=== PATIENT | female | born 1930 | race Caucasian/White ===

== ENCOUNTER 2018-03-08 09:27 | Inpatient (IN) ==
[2018-03-08] MEDS ORDERED: LACTATED RINGERS 1,000 ML IV ONE (09:34)
--- NOTE | 2018-03-08 09:42 | Emergency Department Note ---
General Adult HPI - General Chief complaint: Weakness Stated complaint: weakness, SOB, tachy Time Seen by Provider: 03/08/18 09:36 Source: patient, EMS Mode of arrival: EMS Limitations: no limitations - History of Present Illness HPI Narrative: This patient became ill yesterday with some nausea and vomiting and confused. Her O2 saturation is a bit low her heart rates over 100 and she does seem a bit confused - Related Data Home Medications Medication Instructions Recorded Confirmed Aspirin [Adult Low Dose Aspirin EC] 81 mg PO DAILY 09/11/15 12/12/15 Atenolol [Tenormin] 50 mg PO BID 09/11/15 12/12/15 Budesonide/Formoterol Fumarate 10.2 gm IH BID 09/11/15 12/12/15 [Symbicort 80-4.5 Mcg Inhaler] Diltiazem HCl [Matzim LA] 240 mg PO DAILY 09/11/15 12/12/15 Donepezil HCl [Donepezil HCl Odt] 5 mg PO DAILY 09/11/15 12/12/15 Isosorbide Mononitrate [Isosorbide 30 mg PO DAILY 09/11/15 12/12/15 Mononitrate ER] Meclizine [Antivert] 25 mg PO TIDP PRN 09/11/15 12/12/15 Omeprazole [Prilosec] 20 mg PO ACB PRN 09/11/15 12/12/15 Simvastatin [Zocor] 10 mg PO HS 09/11/15 12/12/15 Vitamin D3 1,000 unit PO DAILY 09/11/15 12/12/15 Previous Rx's Medication Instructions Recorded Lisinopril [Zestril] 10 mg PO DAILY #30 tablet 10/10/15 predniSONE [Prednisone] 10 mg PO DAILY #18 tablet 05/09/16 Diltiazem HCl [Diltiazem 24Hr Cd] 360 mg PO QDAY #30 cap.er.24h 12/29/17 Nitrofurantoin Macrocrystal 100 mg PO BID 7 Days #14 cap 01/28/18 [Nitrofurantoin] Allergies Allergy/AdvReac Type Severity Reaction Status Date / Time No Known Drug Allergies Allergy Verified 03/08/18 09:32 Review of Systems All systems ED: reviewed and negative except as stated. Past Medical History - Past Medical History PMF Narrative: Medical History Weakness (Acute) COPD with hypoxia (Acute) Hypertensive crisis (Acute) Diarrhea (Acute) Gastroenteritis (Acute) Viral syndrome (Acute) COPD (chronic obstructive pulmonary disease) (Acute) Medical history: Reports: asthma, coronary artery disease, dementia, GERD, hyperlipidemia, hypertension Surgical history ED: Reports: cholecystectomy, hysterectomy - Social History smoking status: Former smoker Alcohol use: Reports: None Drug use: Reports: unknown Physical Exam Limitations: no limitations General appearance: alert, in no apparent distress Head: atraumatic, normocephalic Eye: Present: normal appearance ENT: normal exam Neck: Present: normal inspection Chest: Present: normal inspection Respiratory: Present: rales/crackles Cardiovascular: Present: regular rate, tachycardia, normal heart sounds Abdominal: Present: soft. Absent: distention, tenderness Extremities: Absent: pedal edema, pretibial edema Neurological: Present: alert Psychiatric: Present: normal affect, normal mood Skin: Present: warm, dry, intact Course Vital Signs Temperature 98.1 F 03/08/18 09:29 Pulse Rate 122 H 03/08/18 09:29 Respiratory Rate 26 H 03/08/18 09:29 Pulse Oximetry (%) 89 L 03/08/18 09:29 Temperature 98.5 F 03/08/18 10:40 Pulse Rate 108 H 03/08/18 11:37 Respiratory Rate 21 03/08/18 11:37 Blood Pressure 163/67 03/08/18 11:31 Pulse Oximetry (%) 100 03/08/18 11:37 Medical Decision Making - [facility] Narrative Medical decision making narrative: Chest x-ray was unremarkable but urine greater than 182 white cells and positive nitrite. Blood cultures obtained we gave Levaquin 500 mg IV and the patient will be admitted to the hospital by Dr. Luciano. - Lab Data Lab results reviewed: Yes I reviewed the patient's lab results. Result diagrams: 03/08/18 09:33 03/08/18 09:33 Lab Results 03/08/18 03/08/18 03/08/18 Range/Units 09:33 09:33 09:33 WBC 10.1 (4.5-11.0) K/mcL RBC 3.76 L (4.00-5.20) M/mcL Hgb 11.6 L (12.0-15.0) g/dL Hct 34.8 L (36.0-48.0) % MCV 92.5 (80.0-100.0) fL MCH 30.9 (26.0-34.0) pg MCHC 33.4 (31.0-36.0) g/dL RDW 14.9 H (11.5-14.5) % Plt Count 284 (140-440) K/mcL MPV 8.7 (7.4-10.4) fL Total Counted 100 Seg Neutrophils % 87 H (38-78) % Band Neutrophils % Not Reportable Lymphocytes % 8 L (15-49) % Monocytes % (Manual) 4 (1-12) % Myelocytes % 1 H (0-0) % Platelet Estimate Normal (NORMAL) RBC Morphology Abnorm A (NORMAL) Anisocytosis Few A (NONE SEEN) VBG Lactic Acid 1.1 (0.5-2.0) mmol/L Sodium 138 (133-145) mmol/L Potassium 4.0 (3.3-5.1) mmol/L Chloride 99 (96-108) mmol/L Carbon Dioxide 26 (22-30) mmol/L Anion Gap 13.0 (8-16) BUN 18 (8-23) mg/dl Creatinine 0.9 (0.6-1.1) mg/dl GFR Calculation 57 Glucose 107 H (70-105) mg/dL Calcium 9.7 (8.6-10.4) mg/dl Total Bilirubin 0.6 (0.0-1.0) mg/dL AST 18 (0-37) U/l ALT 8 (0-40) U/l Alkaline Phosphatase 111 (39-117) U/L Total Protein 7.3 (5.9-8.4) gm/dL Albumin 3.2 (3.2-5.2) gm/dL Globulin 4.1 H (2.2-3.7) gm/dL Albumin/Globulin Ratio 0.8 L (1.0-2.3) Urine Color Urine Appearance Urine pH (5.0-9.0) Ur Specific [place] (1.000-1.035) Urine Protein (NEG) mg/dL Urine Glucose (UA) (NEG) mg/dL Urine Ketones (NEG) mg/dL Urine Occult Blood (<0.03) mg/dL Urine Nitrate (NEG) Urine Bilirubin (NEG) mg/dL Urine Urobilinogen (NEG) mg/dL Ur Leukocyte Esterase (NEG) /uL Urine RBC (0-1) /hpf Urine WBC (0-4) /hpf Ur Squamous Epith Cells (0-4) /hpf Ur Transition Epith Cell (0-2) /hpf Urine Bacteria (0) /hpf Urine Mucus (0) /hpf Ur Culture Indicated? 03/08/18 Range/Units 10:26 WBC (4.5-11.0) K/mcL RBC (4.00-5.20) M/mcL Hgb (12.0-15.0) g/dL Hct (36.0-48.0) % MCV (80.0-100.0) fL MCH (26.0-34.0) pg MCHC (31.0-36.0) g/dL RDW (11.5-14.5) % Plt Count (140-440) K/mcL MPV (7.4-10.4) fL Total Counted Seg Neutrophils % (38-78) % Band Neutrophils % Lymphocytes % (15-49) % Monocytes % (Manual) (1-12) % Myelocytes % (0-0) % Platelet Estimate (NORMAL) RBC Morphology (NORMAL) Anisocytosis (NONE SEEN) VBG Lactic Acid (0.5-2.0) mmol/L Sodium (133-145) mmol/L Potassium (3.3-5.1) mmol/L Chloride (96-108) mmol/L Carbon Dioxide (22-30) mmol/L Anion Gap (8-16) BUN (8-23) mg/dl Creatinine (0.6-1.1) mg/dl GFR Calculation Glucose (70-105) mg/dL Calcium (8.6-10.4) mg/dl Total Bilirubin (0.0-1.0) mg/dL AST (0-37) U/l ALT (0-40) U/l Alkaline Phosphatase (39-117) U/L Total Protein (5.9-8.4) gm/dL Albumin (3.2-5.2) gm/dL Globulin (2.2-3.7) gm/dL Albumin/Globulin Ratio (1.0-2.3) Urine Color Yellow Urine Appearance Cloudy Urine pH 5.0 (5.0-9.0) Ur Specific [place] 1.018 (1.000-1.035) Urine Protein 30 A (NEG) mg/dL Urine Glucose (UA) Negative (NEG) mg/dL Urine Ketones 5/tr A (NEG) mg/dL Urine Occult Blood Neg (<0.03) mg/dL Urine Nitrate Pos A (NEG) Urine Bilirubin Neg (NEG) mg/dL Urine Urobilinogen Neg (NEG) mg/dL Ur Leukocyte Esterase 500 A (NEG) /uL Urine RBC 2 H (0-1) /hpf Urine WBC > 182 H (0-4) /hpf Ur Squamous Epith Cells 11 H (0-4) /hpf Ur Transition Epith Cell 1 (0-2) /hpf Urine Bacteria Few A (0) /hpf Urine Mucus Many A (0) /hpf Ur Culture Indicated? No - Radiology Data Radiology results reviewed: Yes I reviewed the patient's radiology results. Disposition Pt seen by FISH PROCESSOR/PA only: No Clinical Impression: UTI (urinary tract infection) Disposition: Xfer As Inpt ([facility]) Condition: Good Referrals: Lily Gale MD [Primary Care Provider] - Time of Disposition: 11:49
[2018-03-08 10:48] LABS: Mean Cell Volume 92.5 fL (80.0-100.0); Mean Corpuscular HGB Conc 33.4 g/dL (31.0-36.0); Mean Corpuscular Hemoglobin 30.9 pg (26.0-34.0); Platelet Count 284 K/mcL (140-440); RBC 3.76 M/mcL (4.00-5.20); Red Cell Distribution Width 14.9 % (11.5-14.5)
[2018-03-08 11:03] LABS: ALT/SGPT 8 U/l (0-40); Albumin 3.2 gm/dL (3.2-5.2); Albumin/Globulin Ratio 0.8 (1.0-2.3); Alkaline Phosphatase 111 U/L (39-117); Blood Urea Nitrogen 18 mg/dl (8-23)
[2018-03-08 11:22] LABS: Anisocytosis FEW (NONE SEEN); Lymphocytes % 8 % (15-49); Monocytes % (Manual) 4 % (1-12); Myelocytes % 1 % (0-0); Platelet Estimate NORMAL (NORMAL); RBC Morphology ABNORM (NORMAL); Segmented Neutrophils % 87 % (38-78)
[2018-03-08 11:30] LABS: Appearance,Urine CLOUDY; Bacteria,Urine FEW /hpf (0); Bilirubin,Urine NEG (NEG); Color,Urine YELLOW; Glucose,Urine (UA) NEGATIVE (NEG); Leukocyte Esterase,Urine 500 /uL (NEG); Mucus,Urine MANY /hpf (0); Protein,Urine 30 mg/dL (NEG); Specific Gravity,Urine 1.018 (1.000-1.035); Urine Blood NEG mg/dL (<0.03); Urine RBC 2 /hpf (0-1); Urine Squamous Epithelial Cell 11 /hpf (0-4); Urine Transitional Epi Cells 1 /hpf (0-2); Urine WBC > 182 /hpf (0-4); Urobilinogen,Urine NEG (NEG)
[2018-03-08] MEDS ORDERED: LEVOFLOXACIN 750 MG/150 ML BAG IV ONE (11:43)
--- NOTE | 2018-03-08 13:00 | Internal Med History&Physical ---
Medical - H&P: HPI Patient information: Note initiated : 03/08/18 at 12:58 pm Service Date, if different from initiated Date: [] Patient: Janelle Lees a 87 y/o F admitted on for weakness, SOB, tachy. Chief Complaint: Weakness, collapsed History of present illness: Ms. Lees is a 87 year old F with a history of hypertension, coronary disease , dementia, hypercholesterolemia who presents after collapsing at home. History is obtained in speaking with the patient, family is not available at time of my interview. Other history is obtained in reviewing old records. History from patient is limited due to mental status. She defers to her at times (was not present) and at other times says she is not sure what the answer is. Probably the patient collapsed at home today. She states she has not really recall what happened. According to Dr. De Los Santos from the ED, the was unable to get her up and EMS was called. She is brought in by EMS. She is currently without any complaints. She states she is feeling as "reasonably as can be expected" for her age. She recalls that she was here in January, cannot recall the she was told she had a urinary tract infection at that time. She did finish a course of nitrofurantoin at that time for a pansensitive Escherichia coli. She "can't tell you [me]" how she felt yesterday, as whether or not she was in her usual state of health. She denies having any fever. She' s had no recent nausea vomiting, abdominal pain, diarrhea or constipation. She occasionally does have emesis though it's been quite some time since that is occurred. She thinks her urine output is normal, she's not had any dysuria. She denies any chest pain/tightness or squeezing. She does not feel particularly short of breath. She has no trouble swallowing. She feels generally weak but does not think she's had any focal arm or leg weakness or numbness. Evaluation in the emergency department reveals evidence of cystitis, though there were some squamous cells on the sample, had significant pyuria as well as bacteriuria. She is also mildly hypoxic 89% on room air, which immediately responded to supplemental oxygen. She was tachycardic in the low 100s, has improved after fluids. She is unable to get up and ambulate effectively, is at significant risk for fall and injury at home. She's been hospitalized for the treatment of urinary tract infection as well as evaluation by physical therapy. ROS unobtainable: due to mental status Medical - H&P: PMH Medical history: Hypertension COPD Dementia History of hypertensive crisis Coronary artery disease GERD Hyperlipidemia Surgical history: H/O cholecystectomy H/O hysterectomy Pertinent family history: Patient is unable to supply family history due to mental status/memory issues Social history: Patient lives with her in their own home. She has not smoked. She does not drink alcohol. Medical - H&P: Meds Home Medications Medication Instructions Recorded Confirmed Type Aspirin [Adult Low Dose Aspirin EC] 81 mg PO DAILY 09/11/15 03/08/18 History Atenolol [Tenormin] 50 mg PO BID 09/11/15 03/08/18 History Budesonide/Formoterol Fumarate 10.2 gm IH BID 09/11/15 03/08/18 History [Symbicort 80-4.5 Mcg Inhaler] Diltiazem HCl [Matzim LA] 240 mg PO DAILY 09/11/15 03/08/18 History Donepezil HCl [Donepezil HCl Odt] 5 mg PO DAILY 09/11/15 03/08/18 History Isosorbide Mononitrate [Isosorbide 30 mg PO DAILY 09/11/15 03/08/18 History Mononitrate ER] Meclizine [Antivert] 25 mg PO TIDP PRN 09/11/15 03/08/18 History Omeprazole [Prilosec] 20 mg PO ACB PRN 09/11/15 03/08/18 History Simvastatin [Zocor] 10 mg PO HS 09/11/15 03/08/18 History Vitamin D3 1,000 unit PO DAILY 09/11/15 03/08/18 History Lisinopril [Zestril] 10 mg PO DAILY #30 tablet 10/10/15 03/08/18 Rx predniSONE [Prednisone] 10 mg PO DAILY #18 tablet 05/09/16 03/08/18 Rx Diltiazem HCl [Diltiazem 24Hr Cd] 360 mg PO QDAY #30 cap.er.24h 12/29/17 Rx Nitrofurantoin Macrocrystal 100 mg PO BID 7 Days #14 cap 01/28/18 03/08/18 Rx [Nitrofurantoin] Allergies Allergy/AdvReac Type Severity Reaction Status Date / Time No Known Drug Allergies Allergy Verified 03/08/18 09:32 Medical - H&P: Exam - Constitutional Vitals: Temp Pulse Resp BP Pulse Ox 98.5 F 112 H 21 160/72 99 03/08/18 10:40 03/08/18 12:07 03/08/18 12:07 03/08/18 12:07 03/08/18 12:07 Exam: GENERAL: Alert, oriented, in no acute distress. Cooperative, appears stated age. HEENT: Atraumatic. PERRL, conjunctiva clear, no scleral icterus. Hearing grossly intact. Oropharynx with moist mucous membranes tongue midline. NECK: Supple without meningismus, no thyromegaly RESPIRATORY: Faint bibasilar crackles on exam, otherwise clear, no wheezing, respirations unlabored. CARDIOVASCULAR: Heart tones are distant, but regular. No murmur gallop or rub appreciated. No peripheral edema. Carotid pulses 2+ without bruit, neck veins are flat while lying supine. GI: Abdomen soft, nontender, no guarding or rebound. No suprapubic tenderness. Bowel sounds are present. No hepatosplenomegaly. LYMPHATIC: No cervical or supraclavicular lymphadenopathy MUSCULOSKELETAL: No joint erythema or swelling, normal range of motion in all extremities. SKIN: Intact, warm, dry, scattered varicosities in the lower extremities, few ecchymoses on the forearms. Skin turgor decreased. NEUROLOGIC: Cranial nerves II through XII grossly intact. Muscle mass normal for age. Strength 5/5 in the upper and lower extremities. Sensation intact to light touch bilaterally. PSYCHIATRIC: Alert, oriented to person, [facility], knows it's because she is collapsed. Answers tend to ramble, she tends to defer to her (who is not present) or to try to answer then state that she is "not sure". Medical - H&P: Reslt - Labs CBC & Chem 7: 03/08/18 09:33 03/08/18 09:33 Labs: Short CBC 03/08/18 Range/Units 09:33 WBC 10.1 (4.5-11.0) K/mcL Hgb 11.6 L (12.0-15.0) g/dL Hct 34.8 L (36.0-48.0) % Plt Count 284 (140-440) K/mcL BMP 03/08/18 09:33 Sodium 138 Potassium 4.0 Chloride 99 Carbon Dioxide 26 BUN 18 Creatinine 0.9 Glucose 107 H Calcium 9.7 Liver Function 03/08/18 Range/Units 09:33 Total Bilirubin 0.6 (0.0-1.0) mg/dL AST 18 (0-37) U/l ALT 8 (0-40) U/l Alkaline Phosphatase 111 (39-117) U/L Albumin 3.2 (3.2-5.2) gm/dL Urine 03/08/18 Range/Units 10:26 Urine Color Yellow Urine Appearance Cloudy Urine pH 5.0 (5.0-9.0) Ur Specific [place] 1.018 (1.000-1.035) Urine Protein 30 A (NEG) mg/dL Urine Glucose (UA) Negative (NEG) mg/dL - EKG Data EKG shows normal: sinus rhythm (first degree AV block) - Imaging and Cardiology Chest x-ray Status: image reviewed by me Additional comments: Chest x-ray appears to have clear lung leonard, unchanged from 01/28. Medical - H&P: A/P (1) Acute cystitis Current visit: Yes Status: Acute (2) Weakness Current visit: No Status: Acute (3) COPD (chronic obstructive pulmonary disease) Current visit: No Status: Acute - Narrative A/P Narrative: 87-year-old female with several medical problems, presenting with weakness, inability to ambulate, collapsed at home, found to have acute cystitis. Acute cystitis. Mild tachycardia presentation but no tachypnea, no fever, leukocytosis, thus no SIRS and no sepsis. Suspect given her underlying debility , the acute infection has worsened her chronic age related debilitation. Appears to have some significant underlying dementia as well. Not safe for return home at this time. She is received levofloxacin in the emergency department. Plan: Hospitalize on observation Change levofloxacin to ceftriaxone, less likely to cause mental status changes, next dose tomorrow Follow-up urine culture Physical therapy evaluation IV hydration for 1 L Dementia. Patient is vague on answers, states at times that she doesn't really know the answer to questions, not sure how she has been feeling recently. It appears in 2016, memory was more intact during admission, however now appears to be declining in reviewing prior ED notes. Plan: Continue home medication regimen, supportive care. Hypertension history of hypertensive emergency and encephalopathy. Blood pressure is currently running a bit high. Plan: Continue home regimen COPD. Mild hypoxia 89% on one reading of presentation. His recovered with oxygen. Not on oxygen at home. No evidence of bronchospasm or acute exacerbation. Plan: Wean oxygen, reviewing continue home regimen. Hypercholesterolemia. Plan: Continue home regimen. Coronary artery disease noted in the chart. No current symptoms of angina. Plan: Continue home regimen. Prophylaxis: Lovenox. CODE STATUS discussed with patient (she is able to actively engage in this conversation and was able to make her wishes known to initial questioning, and again with rephrasing the discussion); she would not want resuscitation in the event of cardiopulmonary arrest. CODE STATUS is DO NOT RESUSCITATE. This was confirmed with her .
--- NOTE | 2018-03-08 13:49 | XRay Report ---
CLINICAL INFORMATION: Hypoxia and tachycardia COMPARISON: 01/28/2018. FINDINGS: Heart size, mediastinum and pulmonary vessels are normal. Lung volumes are elevated suggesting chronic bronchitis. Mild scarring lingular region and also atelectasis or scarring in the right lung base with small right pleural effusion. IMPRESSION: Small right pleural effusion with minor scarring in the right base. Please consider pulmonary embolus. Underlying chronic bronchitis changes Interpreted and Authenticated by: Isaac Real 03/08/18
[2018-03-08] MEDS ORDERED: IOPAMIDOL 100 ML BOTTLE IV ONE (14:06)
[2018-03-08] MEDS ORDERED: ONDANSETRON 4 MG/2 ML VIAL IV PRN (14:56)
[2018-03-08] MEDS ORDERED: ACETAMINOPHEN 325 MG TABLET PO PRN (14:56)
[2018-03-08] MEDS: 0.9 % SODIUM CHLORIDE 1,000 ML IV SCH (15:38)
[2018-03-08] MEDS: 0.9 % SODIUM CHLORIDE 10 ML SYRINGE IV SCH ×2 (15:39→21:20)
[2018-03-08] MEDS ORDERED: IPRATROPIUM/ALBUTEROL 3 ML AMPUL.NEB NEB PRN (16:08)
[2018-03-08] MEDS: DONEPEZIL 10 MG TABLET PO SCH (21:01)
[2018-03-08] MEDS: SIMVASTATIN 10 MG TABLET PO SCH (21:01)
[2018-03-08] MEDS: ATENOLOL 50 MG TABLET PO SCH (21:01)
[2018-03-08] MEDS: FLUTICASONE/SALMETEROL 250/50 INHALER #14 INH SCH (21:04)
[2018-03-09] MEDS: 0.9 % SODIUM CHLORIDE 1,000 ML IV SCH (04:21)
[2018-03-09 06:47] LABS: Basophils # (Auto) 0 K/mcL (0.0-0.3); Basophils % (Auto) 0.5 % (0.0-2.0); Eosinophils # (Auto) 0.1 K/mcL (0.0-0.7); Eosinophils % (Auto) 1.4 % (0.0-7.0); Granulocytes % (Auto) 74.1 % (38.0-78.0); Lymphocytes # (Auto) 1.2 K/mcL (1.5-4.8); Lymphocytes % (Auto) 13.1 % (15.5-49.0); Mean Cell Volume 91.8 fL (80.0-100.0); Mean Corpuscular HGB Conc 33.5 g/dL (31.0-36.0); Mean Corpuscular Hemoglobin 30.8 pg (26.0-34.0); Monocytes % (Auto) 10.9 % (1.0-12.0); Platelet Count 247 K/mcL (140-440); RBC 3.28 M/mcL (4.00-5.20); Red Cell Distribution Width 14.7 % (11.5-14.5)
[2018-03-09 07:11] LABS: Blood Urea Nitrogen 15 mg/dl (8-23)
[2018-03-09] MEDS: ISOSORBIDE MONONITRATE 60 MG TAB.XL.24H PO SCH (08:46)
[2018-03-09] MEDS: ATENOLOL 50 MG TABLET PO SCH ×2 (08:46→21:08)
[2018-03-09] MEDS: LISINOPRIL 10 MG TABLET PO SCH (08:46)
[2018-03-09] MEDS: predniSONE 10 MG TABLET PO SCH (08:46)
[2018-03-09] MEDS: ASPIRIN 81 MG TAB.CHEW PO SCH (08:46)
[2018-03-09] MEDS: VITAMIN D3 1,000 UNIT TABLET PO SCH (08:46)
[2018-03-09] MEDS: 0.9 % SODIUM CHLORIDE 10 ML SYRINGE IV SCH ×3 (08:47→21:28)
[2018-03-09] MEDS: OMEPRAZOLE 20 MG CAPSULE PO SCH (08:51)
[2018-03-09] MEDS: cefTRIAXone 1 GM VIAL IV SCH (08:52)
[2018-03-09] MEDS: FLUTICASONE/SALMETEROL 250/50 INHALER #14 INH SCH ×3 (08:55→21:08)
[2018-03-09] MEDS ORDERED: ENOXAPARIN 40 MG/0.4 ML SYRINGE SQ SCH (09:00)
[2018-03-09] MEDS ORDERED: DILTIAZEM 120 MG CAP.XL.24H PO SCH (09:00)
[2018-03-09] MEDS ORDERED: DILTIAZEM 240 MG CAP.XL.24H PO SCH (09:00)
--- NOTE | 2018-03-09 09:52 | Internal Med Progress Note ---
Medical - PN: Subj Patient information: Note initiated : 03/09/18 at 9:48 am Service Date, if different from initiated Date: [] Patient: Janelle Lees a 87 y/o F admitted on 03/08/18 for weakness, SOB, tachy. Chief Complaint: f/u UTI Interval history: Xiao Lees is a 87 year old F with a history of hypertension, coronary disease , dementia, hypercholesterolemia who presents after collapsing at home. History is obtained in speaking with the patient, family is not available at time of my interview. Other history is obtained in reviewing old records. History from patient is limited due to mental status. She defers to her at times (was not present) and at other times says she is not sure what the answer is. Probably the patient collapsed at home today. She states she has not really recall what happened. According to Dr. De Los Santos from the ED, the was unable to get her up and EMS was called. She is brought in by EMS. She is currently without any complaints. She states she is feeling as "reasonably as can be expected" for her age. She recalls that she was here in January, cannot recall the she was told she had a urinary tract infection at that time. She did finish a course of nitrofurantoin at that time for a pansensitive Escherichia coli. She "can't tell you [me]" how she felt yesterday, as whether or not she was in her usual state of health. She denies having any fever. She' s had no recent nausea vomiting, abdominal pain, diarrhea or constipation. She occasionally does have emesis though it's been quite some time since that is occurred. She thinks her urine output is normal, she's not had any dysuria. She denies any chest pain/tightness or squeezing. She does not feel particularly short of breath. She has no trouble swallowing. She feels generally weak but does not think she's had any focal arm or leg weakness or numbness. Evaluation in the emergency department reveals evidence of cystitis, though there were some squamous cells on the sample, had significant pyuria as well as bacteriuria. She is also mildly hypoxic 89% on room air, which immediately responded to supplemental oxygen. She was tachycardic in the low 100s, has improved after fluids. She is unable to get up and ambulate effectively, is at significant risk for fall and injury at home. She's been hospitalized for the treatment of urinary tract infection as well as evaluation by physical therapy. 03/09 Complains of being very tired today. Noted to have labored respirations intermittently, some grunting at times. Has history of underlying COPD. Maintaining saturations on room air, however desats with ambulation. No known history of needing oxygen at home. No nausea, no vomiting. Complaining of generalized weakness. Did discuss with the patient's son, she often does have grunting with respirations at baseline at home. Dyspnea is a significant symptom for her baseline. - Constitutional Vitals: Vital Signs Temp Pulse Resp BP Pulse Ox 97.9 F 87 14 142/70 95 03/09/18 08:00 03/09/18 03:11 03/09/18 08:00 03/09/18 08:00 03/09/18 08:00 Period Temp Pulse Resp BP Sys/Ramsey Pulse Ox Last 24 Hr 97.8 F-99.0 F 80-115 14-36 122-173/66-92 91-100 Intake and Output 03/08/18 03/09/18 03/09/18 21:59 05:59 13:59 Intake Total 1460 / 1460 Output Total 250 / 250 151 / 151 Balance -250 / -250 1309 / 1309 Weight 140 lb Intake & Output: Intake & Output 03/08/18 03/09/18 03/09/18 21:59 05:59 13:59 Intake Total 1460 / 1460 Output Total 250 / 250 151 / 151 Balance -250 / -250 1309 / 1309 Weight 140 lb Intake: IV 1000 / 1000 Sodium Chloride 0.9% 1,000 ml @ 1000 / 1000 75 mls/hr IV .[id number] ARCELIA Rx#: [id number] Oral 460 / 460 Output: Void Amount 250 / 250 150 / 150 # of times incontinent of urine Other: # Voids 1 Exam: General: In bed, appears mildly uncomfortable Chest: Diminished, no wheezes, respirations mildly labored Cardiovascular: Regular, trace edema Abdomen: Soft, nontender Neuro: Alert, oriented to self, knows she is in the hospital, generally weak. Medical - PN: Obj Da - Labs CBC & Chem 7: 03/09/18 04:05 03/09/18 04:05 Labs: Abnormal Lab Results 03/09/18 03/08/18 03/08/18 04:05 10:26 09:33 RBC 3.28 L Hgb 10.1 L Hct 30.1 L RDW 14.7 H Lymph % (Auto) 13.1 L Lymph # (Auto) 1.2 L Nobles # (Auto) 1.0 H Seg Neutrophils % Lymphocytes % Myelocytes % RBC Morphology Anisocytosis Glucose 107 H Globulin 4.1 H Albumin/Globulin Ratio 0.8 L Urine Protein 30 A Urine Ketones 5/tr A Urine Nitrate Pos A Ur Leukocyte Esterase 500 A Urine RBC 2 H Urine WBC > 182 H Ur Squamous Epith Cells 11 H Urine Bacteria Few A Urine Mucus Many A 03/08/18 09:33 RBC 3.76 L Hgb 11.6 L Hct 34.8 L RDW 14.9 H Lymph % (Auto) Lymph # (Auto) Nobles # (Auto) Seg Neutrophils % 87 H Lymphocytes % 8 L Myelocytes % 1 H RBC Morphology Abnorm A Anisocytosis Few A Glucose Globulin Albumin/Globulin Ratio Urine Protein Urine Ketones Urine Nitrate Ur Leukocyte Esterase Urine RBC Urine WBC Ur Squamous Epith Cells Urine Bacteria Urine Mucus Meds: Medications Acetaminophen (Tylenol) 650 mg PO Q6HP PRN PRN Reason: PAIN/FEVER > 101 Albuterol/Ipratropium (Duoneb) 3 ml NEB Q4HP PRN PRN Reason: Wheezing Last Admin: 03/09/18 02:08 Dose: 3 ml Aspirin (Aspirin) 81 mg PO DAILY [facility] Last Admin: 03/09/18 08:46 Dose: 81 mg Atenolol (Tenormin) 50 mg PO BID [facility] Last Admin: 03/09/18 08:46 Dose: 50 mg Ceftriaxone Sodium (Rocephin) 1 gm IV Q24H [facility] Last Admin: 03/09/18 08:52 Dose: 1 gm Diltiazem HCl (Cardizem Cd) 240 mg PO DAILY [facility] Donepezil HCl (Aricept) 5 mg PO HS [facility] Last Admin: 03/08/18 21:01 Dose: 5 mg Enoxaparin Sodium (Lovenox) 40 mg SQ DAILY [facility] Last Admin: 03/09/18 08:47 Dose: 40 mg Isosorbide Mononitrate (Imdur) 30 mg PO DAILY [facility] Last Admin: 03/09/18 08:46 Dose: 30 mg Lisinopril (Zestril) 10 mg PO DAILY [facility] Last Admin: 03/09/18 08:46 Dose: 10 mg Omeprazole (Prilosec) 20 mg PO ACB [facility] Last Admin: 03/09/18 08:51 Dose: 20 mg Ondansetron HCl (Zofran) 4 mg IV Q6HP PRN PRN Reason: Nausea And Vomiting Prednisone (Prednisone) 10 mg PO QAC [facility] Last Admin: 03/09/18 08:46 Dose: 10 mg Fluticasone/Salmeterol (Advair 250-50 Diskus) 1 puff INH BID [facility] Simvastatin (Zocor) 10 mg PO HS [facility] Last Admin: 03/08/18 21:01 Dose: 10 mg Sodium Chloride (Saline Flush) 10 ml IV Q8 [facility] Last Admin: 03/09/18 08:47 Dose: 10 ml Vitamin D (Vitamin D3) 1,000 unit PO DAILY [facility] Last Admin: 03/09/18 08:46 Dose: 1,000 unit - Imaging and cardiology CT scan - chest Status: image reviewed by me Additional comments: Discussed with Dr. Duong at time of reading. Bilateral pulmonary emboli including right main saddle embolus. Some calcification of upper lobe artery suggesting possible old PE as well, though current findings appear acute. Medical - PN: A/P - Time Spent With Patient Total time spent is greater than 50% in coordination of care (as documented) at patient's floor/unit and/or counseling patient: Greater than 35 minutes (1) Acute cystitis Status: Acute Current Visit: Yes (2) Weakness Status: Acute Current Visit: No (3) COPD (chronic obstructive pulmonary disease) Status: Acute Current Visit: No - Narrative A/P Narrative: 87-year-old female with several medical problems, presenting with weakness, inability to ambulate, collapsed at home, found to have acute cystitis. Acute cystitis. No SIRS and no sepsis. Suspect given her underlying debility, the acute infection has worsened her chronic age related debilitation. Plan:. Follow-up urine culture. PT evaluation and treatment. Dyspnea, hypoxia. She has underlying COPD. Respirations are labored at times, though no wheezing on exam. Does have diminished breath sounds throughout. Does not use oxygen at home, now requiring oxygen with exertion. Plan: Continue bronchodilators, check CT angio of the chest-->bilateral PE's, begin full dose enoxaparin. Inpatient status. Dementia. Her confirms that she has had significant decline in cognitive function the last couple of years. Plan: Continue home medication regimen, supportive care. Hypertension history of hypertensive emergency and encephalopathy. Blood pressure is currently running a bit high. Plan: Continue home regimen Hypercholesterolemia. Plan: Continue home regimen. Coronary artery disease noted in the chart. No current symptoms of angina. Plan: Continue home regimen. Medical - PN: Qual - Stroke Symptom Onset Unknown: No - VTE Deep Vein Thrombosis/Pulmonary Embolism Present on Admission: No
[2018-03-09] MEDS: DILTIAZEM 240 MG CAP.XL.24H PO SCH (10:19)
[2018-03-09] MEDS ORDERED: cefTRIAXone 1 GM in DEXTROSE 5% IN WATER 50 ML IV SCH (11:00)
[2018-03-09] MEDS ORDERED: ENOXAPARIN 30 MG/0.3 ML SYRINGE SQ STA (11:11)
--- NOTE | 2018-03-09 11:14 | Cat Scan Report ---
CLINICAL INFORMATION: Worsening dyspnea, hypoxia and tachycardia with underlying COPD COMPARISON: Unenhanced chest CT on 05/26/14 TECHNIQUE: Axial images obtained through the chest. intravenous contrast administration was administered, and scanning was performed during pulmonary arterial phase. Sagittally and coronally reformatted images were obtained. MIP reformatted images. Radiation exposure was limited using dose reduction technology FINDINGS: There are multiple bilateral pulmonary emboli. There is a saddle embolus at the bifurcation of the right lower lobe and right middle lobe branches. There are smaller emboli in the right upper lobe. There are also small to intermediate sized emboli in the left upper lobe, lingula and left lower lobe. Calcification is seen along the wall of one of the pulmonary arteries in the medial aspect of the right upper lobe. This may be an old organized clot. Main pulmonary artery is mildly dilated. The right ventricle is larger than the left. The ratio of right to left ventricles is 1.2. Bands of atelectasis are present adjacent to the superior aspect of the major fissure and the lower half of the left major fissure. There are also linear bands of scar or discoid atelectasis in both lungs. Mild centrilobular emphysema is present in both upper lobes and lingula. There is no evidence of pneumonia. Bronchial wall thickening is seen in both lower lobes due to chronic bronchitis. Is no pleural effusion. No abnormally enlarged lymph nodes are present. A moderate amount calcified plaque is present in the coronary arteries. Patient has multiple compression fractures in the thoracic spine due to underlying osteoporosis. There are moderate compression fractures at T9, T10 and T12 which have been treated with kyphoplasty. There are untreated moderate compression fractures at T6 and L1. None of these fractures were present in 2015. IMPRESSION: Numerous bilateral acute pulmonary emboli Multiple compression fractures in the thoracic and lumbar spine of varying age. Dr. Luciano was called with results Interpreted and Authenticated by: Mahamed Duong 03/09/18
[2018-03-09] MEDS ORDERED: FLEETS ADULT ENEMA PR PRN (16:36)
[2018-03-09] MEDS ORDERED: BISACODYL 10 MG SUPP.RECT PR PRN (16:36)
[2018-03-09] MEDS ORDERED: MAGNESIUM HYDROXIDE 30 ML ORAL.SUSP PO PRN (16:36)
[2018-03-09] MEDS: ENOXAPARIN 40 MG/0.4 ML SYRINGE SQ SCH (21:07)
[2018-03-09] MEDS: DONEPEZIL 10 MG TABLET PO SCH (21:08)
[2018-03-09] MEDS: DOCUSATE SODIUM 100 MG CAPSULE PO SCH (21:08)
[2018-03-09] MEDS: SIMVASTATIN 10 MG TABLET PO SCH (21:08)
[2018-03-10] MEDS: 0.9 % SODIUM CHLORIDE 10 ML SYRINGE IV SCH ×3 (05:46→23:04)
[2018-03-10] MEDS: OMEPRAZOLE 20 MG CAPSULE PO SCH (07:23)
[2018-03-10] MEDS: ATENOLOL 50 MG TABLET PO SCH ×2 (09:14→23:03)
[2018-03-10] MEDS: ISOSORBIDE MONONITRATE 60 MG TAB.XL.24H PO SCH (09:14)
[2018-03-10] MEDS: DILTIAZEM 240 MG CAP.XL.24H PO SCH (09:14)
[2018-03-10] MEDS: DOCUSATE SODIUM 100 MG CAPSULE PO SCH ×2 (09:14→23:03)
[2018-03-10] MEDS: predniSONE 10 MG TABLET PO SCH (09:14)
[2018-03-10] MEDS: ASPIRIN 81 MG TAB.CHEW PO SCH (09:14)
[2018-03-10] MEDS: LISINOPRIL 10 MG TABLET PO SCH (09:14)
[2018-03-10] MEDS: VITAMIN D3 1,000 UNIT TABLET PO SCH (09:14)
[2018-03-10] MEDS: FLUTICASONE/SALMETEROL 250/50 INHALER #14 INH SCH ×2 (09:17→23:04)
[2018-03-10] MEDS: cefTRIAXone 1 GM VIAL IV SCH (09:24)
[2018-03-10] MEDS: ENOXAPARIN 40 MG/0.4 ML SYRINGE SQ SCH (09:24)
[2018-03-10 10:54] LABS: Basophils # (Auto) 0 K/mcL (0.0-0.3); Basophils % (Auto) 0.4 % (0.0-2.0); Eosinophils # (Auto) 0.1 K/mcL (0.0-0.7); Eosinophils % (Auto) 0.7 % (0.0-7.0); Granulocytes % (Auto) 78.6 % (38.0-78.0); Lymphocytes # (Auto) 1.3 K/mcL (1.5-4.8); Lymphocytes % (Auto) 13.1 % (15.5-49.0); Mean Cell Volume 92.9 fL (80.0-100.0); Mean Corpuscular Hemoglobin 30.7 pg (26.0-34.0); Monocytes # (Auto) 0.7 K/mcL (0.1-0.9); Monocytes % (Auto) 7.2 % (1.0-12.0); Platelet Count 319 K/mcL (140-440); RBC 3.56 M/mcL (4.00-5.20); Red Cell Distribution Width 15.1 % (11.5-14.5)
[2018-03-10 11:09] LABS: ALT/SGPT 9 U/l (0-40); Albumin 2.8 gm/dL (3.2-5.2); Albumin/Globulin Ratio 0.7 (1.0-2.3); Alkaline Phosphatase 98 U/L (39-117); Bilirubin,Direct < 0.2 mg/dL (0.0-0.3); Blood Urea Nitrogen 19 mg/dl (8-23); Gamma Glutamyl Transpeptidase 18 U/L (5-36)
--- NOTE | 2018-03-10 12:21 | Internal Med Progress Note ---
Medical - PN: Subj Patient information: Note initiated : 03/10/18 at 12:16 pm Service Date, if different from initiated Date: [] Patient: Janelle Lees a 87 y/o F admitted on 03/09/18 for weakness, SOB, tachy. Chief Complaint: [] Interval history: Ms. Lees is a 87 year old F with a history of hypertension, coronary disease , dementia, hypercholesterolemia who presents after collapsing at home. History is obtained in speaking with the patient, family is not available at time of my interview. Other history is obtained in reviewing old records. History from patient is limited due to mental status. She defers to her at times (was not present) and at other times says she is not sure what the answer is. Probably the patient collapsed at home today. She states she has not really recall what happened. According to Dr. De Los Santos from the ED, the was unable to get her up and EMS was called. She is brought in by EMS. She is currently without any complaints. She states she is feeling as "reasonably as can be expected" for her age. She recalls that she was here in January, cannot recall the she was told she had a urinary tract infection at that time. She did finish a course of nitrofurantoin at that time for a pansensitive Escherichia coli. She "can't tell you [me]" how she felt yesterday, as whether or not she was in her usual state of health. She denies having any fever. She' s had no recent nausea vomiting, abdominal pain, diarrhea or constipation. She occasionally does have emesis though it's been quite some time since that is occurred. She thinks her urine output is normal, she's not had any dysuria. She denies any chest pain/tightness or squeezing. She does not feel particularly short of breath. She has no trouble swallowing. She feels generally weak but does not think she's had any focal arm or leg weakness or numbness. Evaluation in the emergency department reveals evidence of cystitis, though there were some squamous cells on the sample, had significant pyuria as well as bacteriuria. She is also mildly hypoxic 89% on room air, which immediately responded to supplemental oxygen. She was tachycardic in the low 100s, has improved after fluids. She is unable to get up and ambulate effectively, is at significant risk for fall and injury at home. She's been hospitalized for the treatment of urinary tract infection as well as evaluation by physical therapy. 03/09 Complains of being very tired today. Noted to have labored respirations intermittently, some grunting at times. Has history of underlying COPD. Maintaining saturations on room air, however desats with ambulation. No known history of needing oxygen at home. No nausea, no vomiting. Complaining of generalized weakness. Did discuss with the patient's son, she often does have grunting with respirations at baseline at home. Dyspnea is a significant symptom for her baseline. 03/10-patient doing well. Denies chest pain or shortness of breath. Currently on apixaban for multifocal PEs. Ongoing Rocephin for cystitis. No overnight fever chills. Nurse expressed concerns about intermittent confusion but easily orients. - Constitutional Vitals: Vital Signs Temp Pulse Resp BP Pulse Ox 98.3 F 77 18 152/66 95 03/10/18 12:00 03/10/18 12:00 03/10/18 12:00 03/10/18 12:00 03/10/18 12:00 Period Temp Pulse Resp BP Sys/Ramsey Pulse Ox Last 24 Hr 97.6 F-98.3 F 61-77 14-22 120-152/60-79 93-98 Intake and Output 03/09/18 03/10/18 03/10/18 21:59 05:59 13:59 Intake Total 200 / 200 Output Total 201 / 201 275 / 275 50 / 50 Balance -201 / -201 -75 / -75 -50 / -50 Weight 140 lb 8 oz Intake & Output: Intake & Output 03/09/18 03/10/18 03/10/18 21:59 05:59 13:59 Intake Total 200 / 200 Output Total 201 / 201 275 / 275 50 / 50 Balance -201 / -201 -75 / -75 -50 / -50 Weight 140 lb 8 oz Intake: Oral 200 / 200 Output: Void Amount 200 / 200 275 / 275 50 / 50 # of times incontinent of urine Other: Meal Dinner Percent of Meal Consumed 25% Feeding Ability Independent Urine Color Bright Yellow Urine Odor Normal Stool Size Small Moderate Stool Color Brown Brown Stool Consistency Dry and Hard Dry and Hard Formed # Voids 1 1 # Bowel Movements 1 1 General appearance: no acute distress Exam: Intermittently confused but easily orients Nonlabored breathing No lymphedema Nondistended abdomen No anxiety Medical - PN: Obj Da - Labs CBC & Chem 7: 03/10/18 10:09 03/10/18 10:10 Labs: Abnormal Lab Results 03/10/18 03/10/18 03/09/18 10:10 10:09 04:05 RBC 3.56 L 3.28 L Hgb 10.9 L 10.1 L Hct 33.1 L 30.1 L RDW 15.1 H 14.7 H Gran % 78.6 H Lymph % (Auto) 13.1 L 13.1 L Lymph # (Auto) 1.3 L 1.2 L Reynolds # (Auto) 1.0 H Seg Neutrophils % Lymphocytes % Myelocytes % RBC Morphology Anisocytosis Glucose 160 H Phosphorus 2.6 L Lactate Dehydrogenase 262 H Albumin 2.8 L Globulin 4.3 H Albumin/Globulin Ratio 0.7 L Urine Protein Urine Ketones Urine Nitrate Ur Leukocyte Esterase Urine RBC Urine WBC Ur Squamous Epith Cells Urine Bacteria Urine Mucus 03/08/18 03/08/18 03/08/18 10:26 09:33 09:33 RBC 3.76 L Hgb 11.6 L Hct 34.8 L RDW 14.9 H Gran % Lymph % (Auto) Lymph # (Auto) Reynolds # (Auto) Seg Neutrophils % 87 H Lymphocytes % 8 L Myelocytes % 1 H RBC Morphology Abnorm A Anisocytosis Few A Glucose 107 H Phosphorus Lactate Dehydrogenase Albumin Globulin 4.1 H Albumin/Globulin Ratio 0.8 L Urine Protein 30 A Urine Ketones 5/tr A Urine Nitrate Pos A Ur Leukocyte Esterase 500 A Urine RBC 2 H Urine WBC > 182 H Ur Squamous Epith Cells 11 H Urine Bacteria Few A Urine Mucus Many A Meds: Medications Acetaminophen (Tylenol) 650 mg PO Q6HP PRN PRN Reason: PAIN/FEVER > 101 Albuterol/Ipratropium (Duoneb) 3 ml NEB Q4HP PRN PRN Reason: Wheezing Last Admin: 03/09/18 02:08 Dose: 3 ml Apixaban (Eliquis) 10 mg PO BID [facility] BEDS AT [facility] Stop: 03/17/18 09:01 Apixaban (Eliquis) 5 mg PO BID [facility]CLUDE 234 BEDS AT THE [facility] Aspirin (Aspirin) 81 mg PO DAILY [facility] 234 BEDS AT THE [facility] Last Admin: 03/10/18 09:14 Dose: 81 mg Atenolol (Tenormin) 50 mg PO BID [facility] 234 BEDS AT THE [facility] Last Admin: 03/10/18 09:14 Dose: 50 mg Bisacodyl (Dulcolax) [address] Q2-3DAYS PRN PRN Reason: Constipation Ceftriaxone Sodium (Rocephin) 1 gm IV Q24H [facility] 234 BEDS AT [facility] Last Admin: 03/10/18 09:24 Dose: 1 gm Diltiazem HCl (Cardizem Cd) 240 mg PO DAILY [facility] 234 BEDS AT [facility] Last Admin: 03/10/18 09:14 Dose: 240 mg Docusate Sodium (Colace) 100 mg PO BID [facility] 234 BEDS AT [facility] Last Admin: 03/10/18 09:14 Dose: 100 mg Donepezil HCl (Aricept) 5 mg PO HS [facility] 234 BEDS AT [facility] Last Admin: 03/09/18 21:08 Dose: 5 mg Isosorbide Mononitrate (Imdur) 30 mg PO DAILY [facility] 234 BEDS AT [facility] Last Admin: 03/10/18 09:14 Dose: 30 mg Lisinopril (Zestril) 10 mg PO DAILY [facility] 234 BEDS AT [facility] Last Admin: 03/10/18 09:14 Dose: 10 mg Magnesium Hydroxide (Milk Of Magnesia) 30 ml PO DAILYP PRN PRN Reason: Constipation Omeprazole (Prilosec) 20 mg PO ACB [facility] 234 BEDS AT [facility] Last Admin: 03/10/18 07:23 Dose: 20 mg Ondansetron HCl (Zofran) 4 mg IV Q6HP PRN PRN Reason: Nausea And Vomiting Prednisone (Prednisone) 10 mg PO QAC [facility] 234 B[facility]S [facility] Last Admin: 03/10/18 09:14 Dose: 10 mg Fluticasone/Salmeterol (Advair 250-50 Diskus) 1 puff INH BID [facility] 234 BEDS AT [facility] Last Admin: 03/10/18 09:17 Dose: 1 puff Simvastatin (Zocor) 10 mg PO HS [facility] 234 BEDS AT [facility] Last Admin: 03/09/18 21:08 Dose: 10 mg Sodium Biphosphate/Sodium Phosphate (Fleets Adult) [address] Q3-4DAYS PRN PRN Reason: Constipation Sodium Chloride (Saline Flush) 10 ml IV Q8 [facility] 234 BEDS AT [facility] Last Admin: 03/10/18 05:46 Dose: Not Given Vitamin D (Vitamin D3) 1,000 unit PO DAILY [facility] 234 BEDS AT [facility] Last Admin: 03/10/18 09:14 Dose: 1,000 unit Medical - PN: A/P - Time Spent With Patient Total time spent is greater than 50% in coordination of care (as documented) at patient's floor/unit and/or counseling patient: 25 - 35 minutes (1) Pulmonary embolism Status: Acute Assessment and plan: * Acute pulmonary embolism-start apixaban. Initially treated on full dose Lovenox. * Dyspnea secondary to above clinically improved * Acute [id number] papa on culture. Continue Rocephin until sensitivities available * Deconditioning/debility-continue PT OT * History of dementia-appears at baseline. Continue donepezil * History of hypertension-continue diltiazem/lisinopril/isosorbide/atenolol * Hyperlipidemia-on statin * History of CAD-on aspirin/isosorbide * Reactive airway disease on Symbicort/prednisone * DNR Plan * Anticoagulation on apixaban * Antibiotic coverage and de-escalate based on sensitivities * Pre-existing well condition management as above * PT OT * Case management arrange discharge planning Current Visit: Yes Medical - PN: Qual - Stroke Symptom Onset Unknown: No - VTE Deep Vein Thrombosis/Pulmonary Embolism Present on Admission: No
[2018-03-10] MEDS ORDERED: RIVAROXABAN 15 MG TABLET PO SCH (17:30)
[2018-03-10] MEDS: APIXABAN 5 MG TABLET PO SCH (23:03)
[2018-03-10] MEDS: SIMVASTATIN 10 MG TABLET PO SCH (23:03)
[2018-03-10] MEDS: DONEPEZIL 10 MG TABLET PO SCH (23:03)
[2018-03-11] MEDS: 0.9 % SODIUM CHLORIDE 10 ML SYRINGE IV SCH ×3 (05:31→23:22)
[2018-03-11] MEDS: predniSONE 10 MG TABLET PO SCH (07:17)
[2018-03-11] MEDS: OMEPRAZOLE 20 MG CAPSULE PO SCH (07:17)
[2018-03-11] MEDS: NEUTRA PHOS 1 PACKET PO SCH ×2 (09:21→22:03)
[2018-03-11] MEDS: DILTIAZEM 240 MG CAP.XL.24H PO SCH (09:21)
[2018-03-11] MEDS: FLUTICASONE/SALMETEROL 250/50 INHALER #14 INH SCH ×2 (09:21→21:57)
[2018-03-11] MEDS: ATENOLOL 50 MG TABLET PO SCH ×2 (09:22→21:59)
[2018-03-11] MEDS: ASPIRIN 81 MG TAB.CHEW PO SCH (09:22)
[2018-03-11] MEDS: ISOSORBIDE MONONITRATE 60 MG TAB.XL.24H PO SCH (09:22)
[2018-03-11] MEDS: VITAMIN D3 1,000 UNIT TABLET PO SCH (09:22)
[2018-03-11] MEDS: LISINOPRIL 10 MG TABLET PO SCH (09:22)
[2018-03-11] MEDS: DOCUSATE SODIUM 100 MG CAPSULE PO SCH ×2 (09:22→21:59)
[2018-03-11] MEDS: APIXABAN 5 MG TABLET PO SCH ×2 (09:23→22:02)
[2018-03-11] MEDS: cefTRIAXone 1 GM VIAL IV SCH (09:42)
[2018-03-11] MEDS: cefTRIAXone 1 GM VIAL IM SCH (09:50)
--- NOTE | 2018-03-11 10:24 | Internal Med Progress Note ---
Medical - PN: Subj Patient information: Note initiated : 03/11/18 at 10:22 am Service Date, if different from initiated Date: [] Patient: Janelle Lees a 87 y/o F admitted on 03/09/18 for weakness, SOB, tachy. Chief Complaint: [] Interval history: Ms. Lees is a 87 year old F with a history of hypertension, coronary disease , dementia, hypercholesterolemia who presents after collapsing at home. History is obtained in speaking with the patient, family is not available at time of my interview. Other history is obtained in reviewing old records. History from patient is limited due to mental status. She defers to her at times (was not present) and at other times says she is not sure what the answer is. Probably the patient collapsed at home today. She states she has not really recall what happened. According to Dr. De Los Santos from the ED, the was unable to get her up and EMS was called. She is brought in by EMS. She is currently without any complaints. She states she is feeling as "reasonably as can be expected" for her age. She recalls that she was here in January, cannot recall the she was told she had a urinary tract infection at that time. She did finish a course of nitrofurantoin at that time for a pansensitive Escherichia coli. She "can't tell you [me]" how she felt yesterday, as whether or not she was in her usual state of health. She denies having any fever. She' s had no recent nausea vomiting, abdominal pain, diarrhea or constipation. She occasionally does have emesis though it's been quite some time since that is occurred. She thinks her urine output is normal, she's not had any dysuria. She denies any chest pain/tightness or squeezing. She does not feel particularly short of breath. She has no trouble swallowing. She feels generally weak but does not think she's had any focal arm or leg weakness or numbness. Evaluation in the emergency department reveals evidence of cystitis, though there were some squamous cells on the sample, had significant pyuria as well as bacteriuria. She is also mildly hypoxic 89% on room air, which immediately responded to supplemental oxygen. She was tachycardic in the low 100s, has improved after fluids. She is unable to get up and ambulate effectively, is at significant risk for fall and injury at home. She's been hospitalized for the treatment of urinary tract infection as well as evaluation by physical therapy. 03/09 Complains of being very tired today. Noted to have labored respirations intermittently, some grunting at times. Has history of underlying COPD. Maintaining saturations on room air, however desats with ambulation. No known history of needing oxygen at home. No nausea, no vomiting. Complaining of generalized weakness. Did discuss with the patient's son, she often does have grunting with respirations at baseline at home. Dyspnea is a significant symptom for her baseline. 03/10-patient doing well. Denies chest pain or shortness of breath. Currently on apixaban for multifocal PEs. Ongoing Rocephin for cystitis. No overnight fever chills. Nurse expressed concerns about intermittent confusion but easily orients. 03/11-patient doing remarkably better. No overnight events. His sitting on chair. Son at bedside. Discussed treatment plan including continued anticoagulation. E. coli pansensitive on cultures. Will be transition to oral antibiotic on discharge. Likely discharge in 24 hours. Continue physical therapy. Case management coordinating discharge plan. - Constitutional Vitals: Vital Signs Temp Pulse Resp BP Pulse Ox 98.4 F 65 20 137/65 97 03/11/18 06:51 03/11/18 04:00 03/11/18 07:21 03/11/18 07:21 03/11/18 06:51 Period Temp Pulse Resp BP Sys/Ramsey Pulse Ox Last 24 Hr 97.4 F-98.5 F 62-77 14-20 135-152/65-72 94-98 Intake and Output 03/10/18 03/11/18 03/11/18 21:59 05:59 13:59 Intake Total 120 / 120 200 / 200 Output Total 100 / 100 75 / 75 75 / 75 Balance 20 / 20 125 / 125 -75 / -75 Weight 129 lb Intake & Output: Intake & Output 03/10/18 03/11/18 03/11/18 21:59 05:59 13:59 Intake Total 120 / 120 200 / 200 Output Total 100 / 100 75 / 75 75 / 75 Balance 20 / 20 125 / 125 -75 / -75 Weight 129 lb Intake: Oral 120 / 120 200 / 200 Output: Void Amount 100 / 100 75 / 75 75 / 75 Other: Meal Dinner Percent of Meal Consumed 50% Feeding Ability Assist with Tray Set Up Urine Appearance Clear Urine Color Bright Yellow Dark Yellow Dark Yellow # Voids 1 1 1 General appearance: no acute distress Exam: Hard of hearing Confused at baseline Nonlabored breathing No anxiety Medical - PN: Obj Da - Labs CBC & Chem 7: 03/10/18 10:09 03/10/18 10:10 Labs: Abnormal Lab Results 03/10/18 03/10/18 03/09/18 10:10 10:09 04:05 RBC 3.56 L 3.28 L Hgb 10.9 L 10.1 L Hct 33.1 L 30.1 L RDW 15.1 H 14.7 H Gran % 78.6 H Lymph % (Auto) 13.1 L 13.1 L Lymph # (Auto) 1.3 L 1.2 L [place] # (Auto) 1.0 H Seg Neutrophils % Lymphocytes % Myelocytes % RBC Morphology Anisocytosis Glucose 160 H Phosphorus 2.6 L Lactate Dehydrogenase 262 H Albumin 2.8 L Globulin 4.3 H Albumin/Globulin Ratio 0.7 L Urine Protein Urine Ketones Urine Nitrate Ur Leukocyte Esterase Urine RBC Urine WBC Ur Squamous Epith Cells Urine Bacteria Urine Mucus 03/08/18 03/08/18 03/08/18 10:26 09:33 09:33 RBC 3.76 L Hgb 11.6 L Hct 34.8 L RDW 14.9 H Gran % Lymph % (Auto) Lymph # (Auto) [place] # (Auto) Seg Neutrophils % 87 H Lymphocytes % 8 L Myelocytes % 1 H RBC Morphology Abnorm A Anisocytosis Few A Glucose 107 H Phosphorus Lactate Dehydrogenase Albumin Globulin 4.1 H Albumin/Globulin Ratio 0.8 L Urine Protein 30 A Urine Ketones 5/tr A Urine Nitrate Pos A Ur Leukocyte Esterase 500 A Urine RBC 2 H Urine WBC > 182 H Ur Squamous Epith Cells 11 H Urine Bacteria Few A Urine Mucus Many A Meds: Medications Acetaminophen (Tylenol) 650 mg PO Q6HP PRN PRN Reason: PAIN/FEVER > 101 Albuterol/Ipratropium (Duoneb) 3 ml NEB Q4HP PRN PRN Reason: Wheezing Last Admin: 03/09/18 02:08 Dose: 3 ml Apixaban (Eliquis) 10 mg PO BID [facility] Stop: 03/17/18 09:01 Last Admin: 03/11/18 09:23 Dose: 10 mg Apixaban (Eliquis) 5 mg PO BID [facility] Aspirin (Aspirin) 81 mg PO DAILY [facility] Last Admin: 03/11/18 09:22 Dose: 81 mg Atenolol (Tenormin) 50 mg PO BID [facility] Last Admin: 03/11/18 09:22 Dose: 50 mg Bisacodyl (Dulcolax) 10 mg UT Q2-3DAYS PRN PRN Reason: Constipation Ceftriaxone Sodium (Rocephin) 1 gm IM Q24H [facility] Last Admin: 03/11/18 09:50 Dose: 1 gm Diltiazem HCl (Cardizem Cd) 240 mg PO DAILY [facility] Last Admin: 03/11/18 09:21 Dose: 240 mg Docusate Sodium (Colace) 100 mg PO BID [facility] Last Admin: 03/11/18 09:22 Dose: 100 mg Donepezil HCl (Aricept) 5 mg PO [facility] Last Admin: 03/10/18 23:03 Dose: 5 mg Isosorbide Mononitrate (Imdur) 30 mg PO DAILY [facility] Last Admin: 03/11/18 09:22 Dose: 30 mg Lisinopril (Zestril) 10 mg PO DAILY [facility] Last Admin: 03/11/18 09:22 Dose: 10 mg Magnesium Hydroxide (Milk Of Magnesia) 30 ml PO DAILYP PRN PRN Reason: Constipation Omeprazole (Prilosec) 20 mg PO ACB [facility] Last Admin: 03/11/18 07:17 Dose: 20 mg Ondansetron HCl (Zofran) 4 mg IV Q6HP PRN PRN Reason: Nausea And Vomiting Potassium/Phosphorus/Sodium (Neutra Phos) 2 packet PO BID [facility] Stop: 03/11/18 21:01 Last Admin: 03/11/18 09:21 Dose: 2 packet Prednisone (Prednisone) 10 mg PO QAC [facility] Last Admin: 03/11/18 07:17 Dose: 10 mg Fluticasone/Salmeterol (Advair 250-50 Diskus) 1 puff INH BID [facility] Last Admin: 03/11/18 09:21 Dose: 1 puff Simvastatin (Zocor) 10 mg PO HS [facility] Last Admin: 03/10/18 23:03 Dose: 10 mg Sodium Biphosphate/Sodium Phosphate (Fleets Adult) 1 dose UT Q3-4DAYS PRN PRN Reason: Constipation Sodium Chloride (Saline Flush) 10 ml IV Q8 [facility] Last Admin: 03/11/18 05:31 Dose: Not Given Vitamin D (Vitamin D3) 1,000 unit PO DAILY [facility] Last Admin: 03/11/18 09:22 Dose: 1,000 unit Medical - PN: A/P - Time Spent With Patient Total time spent is greater than 50% in coordination of care (as documented) at patient's floor/unit and/or counseling patient: 15 - 24 minutes (1) Pulmonary embolism Status: Acute Assessment and plan: * Acute pulmonary embolism-clinically improving. Continue apixaban. Likely discharge in 24 hours * Dyspnea secondary to above- clinically improved * Acute cystitis-pansensitive E. coli. Transition to oral antibiotics on discharge. * Deconditioning/debility-continue PT OT. Likely discharge in 24 hours * History of dementia-appears at baseline. Continue donepezil * History of hypertension-continue diltiazem/lisinopril/isosorbide/atenolol * Hyperlipidemia-on statin * History of CAD-on aspirin/isosorbide * Reactive airway disease on Symbicort/prednisone * DNR Plan * Anticoagulation on apixaban * Transition to oral antibiotics on discharge likely in 24 hours * Pre-existing well condition management as above * PT OT Current Visit: Yes Medical - PN: Qual - Stroke Symptom Onset Unknown: No - VTE Deep Vein Thrombosis/Pulmonary Embolism Present on Admission: No
[2018-03-11] MEDS: SIMVASTATIN 10 MG TABLET PO SCH (21:57)
[2018-03-11] MEDS: DONEPEZIL 10 MG TABLET PO SCH (21:58)
[2018-03-12] MEDS: ATENOLOL 50 MG TABLET PO SCH (08:03)
[2018-03-12] MEDS: DOCUSATE SODIUM 100 MG CAPSULE PO SCH (08:03)
[2018-03-12] MEDS: VITAMIN D3 1,000 UNIT TABLET PO SCH (08:03)
[2018-03-12] MEDS: OMEPRAZOLE 20 MG CAPSULE PO SCH (08:03)
[2018-03-12] MEDS: ISOSORBIDE MONONITRATE 60 MG TAB.XL.24H PO SCH (08:04)
[2018-03-12] MEDS: APIXABAN 5 MG TABLET PO SCH (08:04)
[2018-03-12] MEDS: predniSONE 10 MG TABLET PO SCH (08:04)
[2018-03-12] MEDS: DILTIAZEM 240 MG CAP.XL.24H PO SCH (08:04)
[2018-03-12] MEDS: LISINOPRIL 10 MG TABLET PO SCH (08:05)
[2018-03-12] MEDS: FLUTICASONE/SALMETEROL 250/50 INHALER #14 INH SCH (08:05)
[2018-03-12] MEDS: ASPIRIN 81 MG TAB.CHEW PO SCH (08:05)
[2018-03-12] MEDS: cefTRIAXone 1 GM VIAL IM SCH (09:16)
[2018-03-12] MEDS ORDERED: cefTRIAXone 1 GM VIAL IM ONE (10:00)
--- NOTE | 2018-03-12 11:05 | Discharge Summary ---
Medical - DS: Prov Patient information: Note initiated : 03/12/18 at 11:03 am Service Date, if different from initiated Date: [] Patient: Janelle Lees 87 y/o F admitted on 03/09/18 for weakness, SOB, tachy. Chief Complaint: [] Date of admission: 03/09/18 11:10 Discharge date: 03/12/18 Primary care physician: Lily Gale Consults: 03/08/18 Consult to Physician [CONS] Stat Comment: Consulting Provider: Di Ramirez Reason For Exam: Physician to Consult Medical - DS: Meds - Discharge Medications Prescriptions: Apixaban [Eliquis] 5 mg PO BID #30 tab Apixaban [Eliquis] 10 mg PO BID #12 tab Cefdinir 300 mg PO BID #8 cap Active and Home Medications: Home Medications Aspirin [Adult Low Dose Aspirin EC] 81 mg PO DAILY 09/11/15 [History Confirmed 03/08/18 Last Taken 03/07/18] Atenolol [Tenormin] 50 mg PO BID 09/11/15 [History Confirmed 03/08/18 Last Taken 03/07/18] Budesonide/Formoterol Fumarate [Symbicort 80-4.5 Mcg Inhaler] 10.2 gm IH BID 09/20 [History Confirmed 03/08/18 Last Taken 03/07/18] Diltiazem HCl [Matzim LA] 240 mg PO DAILY 09/11/15 [History Confirmed 03/08/18 Last Taken 03/07/18] Donepezil HCl [Donepezil HCl Odt] 5 mg PO DAILY 09/11/15 [History Confirmed 05/25 Last Taken 03/07/18] Isosorbide Mononitrate [Isosorbide Mononitrate ER] 30 mg PO DAILY 09/11/15 [ History Confirmed 03/08/18 Last Taken 03/07/18] Meclizine [Antivert] 25 mg PO TIDP PRN 09/11/15 [History Confirmed 03/08/18 Last Taken 03/07/18] Omeprazole [Prilosec] 20 mg PO ACB PRN 09/11/15 [History Confirmed 03/08/18 Last Taken 03/07/18] Simvastatin [Zocor] 10 mg PO HS 09/11/15 [History Confirmed 03/08/18 Last Taken 03/07/18] Vitamin D3 1,000 unit PO DAILY 09/11/15 [History Confirmed 03/08/18 Last Taken 03/07/18] Lisinopril [Zestril] 10 mg PO DAILY #30 tablet 10/10/15 [Rx Confirmed 03/08/18 Last Taken 03/07/18] predniSONE [Prednisone] 10 mg PO DAILY #18 tablet 05/09/16 [Rx Confirmed Last Taken 03/07/18] Nitrofurantoin Macrocrystal [Nitrofurantoin] 100 mg PO BID 7 Days #14 cap [Rx Confirmed 03/08/18 Last Taken 03/07/18] Apixaban [Eliquis] 5 mg PO BID #30 tab 03/12/18 [Rx Last Taken Unknown] Apixaban [Eliquis] 10 mg PO BID #12 tab 03/12/18 [Rx Last Taken Unknown] Cefdinir 300 mg PO BID #8 cap 03/12/18 [Rx Last Taken Unknown] Medical - DS: Hosp Hospital course: Discharge diagnosis * Acute pulmonary embolism-clinically improving. Continue apixaban 10 mg twice daily through 03/07 followed by 5 mg twice daily. * Dyspnea secondary to above- clinically resolved * Acute cystitis-pansensitive E. coli. Continue additional 4 days oral cefdinir * Deconditioning/debility-continue PT OT at SNF * History of dementia-appears at baseline. Continue donepezil * History of hypertension-remained stable during hospitalization. Continue diltiazem/lisinopril/isosorbide/atenolol * Hyperlipidemia-continue statin * History of CAD-continued on on aspirin/isosorbide/MARTINEZ inhibitor/statin * Reactive airway disease on Symbicort Brief hospital course Ms. Lees is a 87 year old F with a history of hypertension, coronary disease , dementia, hypercholesterolemia who presents after collapsing at home. History is obtained in speaking with the patient, family is not available at time of my interview. Other history is obtained in reviewing old records. History from patient is limited due to mental status. She defers to her at times (was not present) and at other times says she is not sure what the answer is. Probably the patient collapsed at home today. She states she has not really recall what happened. According to Dr. De Los Santos from the ED, the was unable to get her up and EMS was called. She is brought in by EMS. She is currently without any complaints. She states she is feeling as "reasonably as can be expected" for her age. She recalls that she was here in January, cannot recall the she was told she had a urinary tract infection at that time. She did finish a course of nitrofurantoin at that time for a pansensitive Escherichia coli. She "can't tell you [me]" how she felt yesterday, as whether or not she was in her usual state of health. She denies having any fever. She' s had no recent nausea vomiting, abdominal pain, diarrhea or constipation. She occasionally does have emesis though it's been quite some time since that is occurred. She thinks her urine output is normal, she's not had any dysuria. She denies any chest pain/tightness or squeezing. She does not feel particularly short of breath. She has no trouble swallowing. She feels generally weak but does not think she's had any focal arm or leg weakness or numbness. Evaluation in the emergency department reveals evidence of cystitis, though there were some squamous cells on the sample, had significant pyuria as well as bacteriuria. She is also mildly hypoxic 89% on room air, which immediately responded to supplemental oxygen. She was tachycardic in the low 100s, has improved after fluids. She is unable to get up and ambulate effectively, is at significant risk for fall and injury at home. She's been hospitalized for the treatment of urinary tract infection as well as evaluation by physical therapy. 03/09 Complains of being very tired today. Noted to have labored respirations intermittently, some grunting at times. Has history of underlying COPD. Maintaining saturations on room air, however desats with ambulation. No known history of needing oxygen at home. No nausea, no vomiting. Complaining of generalized weakness. Did discuss with the patient's son, she often does have grunting with respirations at baseline at home. Dyspnea is a significant symptom for her baseline. 03/10-patient doing well. Denies chest pain or shortness of breath. Currently on apixaban for multifocal PEs. Ongoing Rocephin for cystitis. No overnight fever chills. Nurse expressed concerns about intermittent confusion but easily orients. 03/11-patient doing remarkably better. No overnight events. His sitting on chair. Son at bedside. Discussed treatment plan including continued anticoagulation. E. coli pansensitive on cultures. Will be transition to oral antibiotic on discharge. Likely discharge in 24 hours. Continue physical therapy. Case management coordinating discharge plan. 03/12= patient sitting on chair. No overnight events. No concerns per staff. Feeling a lot better. Dementia at baseline. No family at bedside. Discharging to SNF with recommendations and medications as below. Follow-up appointments being scheduled prior to discharge Discharge diagnosis: . - Time Spent with Patient Total time spent providing and/or coordinating discharge services: Greater than 30 minutes Medical - DS: Exam - Constitutional Vitals: Vital Signs Temp Pulse Resp BP BP Pulse Ox 03/12/18 06:42 96.7 F L 65 21 160/69 98 03/12/18 04:00 98.4 F 72 20 167/81 97 03/12/18 00:00 98.0 F 68 14 126/64 95 03/11/18 19:05 97.8 F 71 28 H 132/68 96 03/11/18 16:00 98.2 F 20 129/66 96 03/11/18 11:54 98.3 F 20 108/59 98 Intake and Output 03/11/18 03/12/18 03/12/18 21:59 05:59 13:59 Intake Total 200 / 200 300 / 300 Output Total 0 / 0 250 / 250 1 / 1 Balance 200 / 200 50 / 50 -1 / -1 Intake: Oral 200 / 200 300 / 300 Output: Void Amount 250 / 250 # of times incontinent of urine 0 / 0 1 / 1 Other: Urine Appearance Clear Clear Urine Color Bright Yellow Straw Urine Odor Normal Normal Stool Size Small Moderate Stool Color Brown Brown Stool Consistency Dry and Hard Loose # Voids 1 1 # Bowel Movements 1 1 Weight 142 lb Medical - DS: Data Labs on day of discharge: Preliminary micro results at discharge 03/08/18 09:50 Blood Culture - Preliminary Blood 03/08/18 09:50 Blood Culture - Preliminary Blood Medical - DS: A/P - Patient/Caregiver Discharge Instructions Activity: as per physical therapy Diet: Regular Diet Additional Instructions: Follow-up PCP in 5 days Continue apixaban 10 mg twice daily through 03/17 followed by 5 mg twice daily to continue for pulmonary embolism treatment I recommend SNF physician to check CBC BMP UA as a posthospital follow-up in 1 week. Antibiotics for additional 4 days for E. coli UTI Continue aggressive bowel regimen to prevent constipation Continue fall precautions Continue aggressive PT OT evaluation and treatment at SNF. ST eval and treatment if indicated All meals on chair sitting upright at 90 degrees to prevent aspiration Return to ER if worsening fever chills shortness of breath, diarrhea, bleeding Review risk and side effect profile of medications including antibiotics and apixaban. Side effect may include mild to severe reaction including rash, diarrhea, cdiff and even from life-threatening bleed which can be prevented by close follow-up with PCP and monitoring for side effects at the correction home Dementia care Continue diet and activity as advised Please review medication list with patient prior to discharge Please schedule follow-up with PCP/Providers prior to discharge and provide printouts Prescriptions: Apixaban [Eliquis] 5 mg PO BID #30 tab Apixaban [Eliquis] 10 mg PO BID #12 tab Cefdinir 300 mg PO BID #8 cap - Problem Maintenance (1) Pulmonary embolism Status: Acute - Follow up Plan Follow up with: Lily Gale MD [Primary Care Provider] - (Please call/schedule hospital follow up to be seen in 1-2 weeks.) Disposition: Xfer [facility] Prognosis: Good Rehab Potential: Fair I certify that the patient requires SNF services: Yes Overall status at discharge: patient is progressing back to baseline Medical - DS: Qual - VTE Deep Vein Thrombosis/Pulmonary Embolism Present on Admission: No
[2018-03-17] MEDS ORDERED: APIXABAN 5 MG TABLET PO SCH (21:00)
== END 2018-03-12 13:00 ==
LOC: MEDSUR 09:27 → ED 09:27 → MEDSUR 14:13
PROVIDERS: ADMIT Internal Medicine; ATTEND Internal Medicine
CPT/HCPCS: 97161

== ENCOUNTER 2018-04-18 13:35 | Inpatient (IN) ==
[2018-04-18] MEDS ORDERED: IPRATROPIUM/ALBUTEROL 3 ML AMPUL.NEB NEB ONE ×2 (14:03→18:34)
[2018-04-18] MEDS ORDERED: LORazepam 2 MG/ML VIAL IV ONE (14:24)
--- NOTE | 2018-04-18 14:25 | Emergency Department Note ---
Lower Extremity Injury HPI - General Chief Complaint: Extremity Injury, Lower Stated Complaint: Fall, hip pain Time Seen by Provider: 04/18/18 13:44 Source: EMS Mode of arrival: EMS Limitations: no limitations - History of Present Illness HPI Narrative: 87-year-old female in ED via EMS. Patient lives at [facility], full financial administrative assistant side. Patient was found this morning on the floor with right hip pain. Staff unaware of when patient fell or how, unknown if patient received LOC. Patient does have Alzheimer's and is unable to provide any details. Patient does have a history hypertension, anxiety, hyperlipidemia, COPD, osteoarthritis, GERD, Alzheimer's. Patient has no allergies patient does have a post form with the DNR and comfort measures only. Upon further interview with family patient was admitted into the [facility] approximately one month ago for rehabilitation and was quickly based on a full care unit area. patient stands and pivots does not currently ambulate. Patient's Alzheimer's has increased since admission into the care facility. Patient was on Eliquis in the past but this was discontinued due to gastric bleeding. MD complaint: hip injury (right) Onset (ago): hour(s) Type of Injury: blunt Place: other ([facility]) Severity: severe Severity scale (1-10): 10 Improves with: immobilization Worsens with: movement, palpation Context: fall, direct blow Associated symptoms: Reports: unable to bear weight Other symptoms: loss of consciousness (unknown) - Related Data Home Medications Medication Instructions Recorded Confirmed Atenolol [Tenormin] 50 mg PO BID 09/11/15 04/18/18 Budesonide/Formoterol Fumarate 10.2 gm IH BID 09/11/15 04/18/18 [Symbicort 80-4.5 Mcg Inhaler] Diltiazem HCl [Matzim LA] 240 mg PO DAILY 09/11/15 04/18/18 Donepezil HCl [Donepezil HCl Odt] 5 mg PO DAILY 09/11/15 04/18/18 Isosorbide Mononitrate [Isosorbide 30 mg PO DAILY 09/11/15 04/18/18 Mononitrate ER] Meclizine [Antivert] 25 mg PO TIDP PRN 09/11/15 04/18/18 Simvastatin [Zocor] 10 mg PO HS 09/11/15 04/18/18 Vitamin D3 1,000 unit PO DAILY 09/11/15 04/18/18 Acetaminophen [Non-Aspirin Extra 500 mg PO TID 04/18/18 04/18/18 Strength] Bisacodyl [Dulcolax] 10 mg ND PRN PRN 04/18/18 04/18/18 Bisacodyl [Gentle Laxative] 10 mg PO DAILYP PRN 04/18/18 04/18/18 LORazepam [Ativan] 0.5 mg PO HSP PRN 04/18/18 04/18/18 LORazepam [Ativan] 0.5 mg PO HSP PRN 04/18/18 04/18/18 Losartan [Cozaar] 50 mg PO DAILY 04/18/18 04/18/18 Magnesium Hydroxide [Milk of 30 ml PO PRN PRN 04/18/18 04/18/18 Magnesia] Metoprolol Tartrate [Lopressor] 25 mg PO BID 04/18/18 04/18/18 Na Phos,M-B/Na Phos,Di-Ba [Fleet 118 ml RC PRN PRN 04/18/18 04/18/18 Enema Extra] Omeprazole [PriLOSEC] 40 mg PO DAILY 04/18/18 04/18/18 Potassium Chloride [Klor-Con 10] 10 meq PO DAILY 04/18/18 04/18/18 Torsemide [Demadex] 20 mg PO DAILY 04/18/18 04/18/18 Tuberculin,Purif.prot.deriv. 5 tub ID ONCE 04/18/18 04/18/18 [Tubersol] busPIRone [Buspar] 5 mg PO BID 04/18/18 04/18/18 busPIRone [Buspar] 10 mg PO TID 04/18/18 04/18/18 traMADol [Ultram] 25 mg PO PRN PRN 04/18/18 04/18/18 Previous Rx's Medication Instructions Recorded Lisinopril [Zestril] 10 mg PO DAILY #30 tablet 10/10/15 Allergies Allergy/AdvReac Type Severity Reaction Status Date / Time No Known Drug Allergies Allergy Verified 04/18/18 13:36 Review of Systems All systems ED: reviewed and negative except as stated. Limitations: ROS unobtainable due to patients medical condition Past Medical History - Past Medical History PMFSH Narrative: All Active Problems Weakness (Acute) Dizziness (Acute) Imbalance (Acute) Hypertensive urgency (Acute) Urinary tract infection (Acute) Acute cystitis (Acute) Pulmonary embolism (Acute) Rectal bleeding (Acute) GI bleed (Acute) COPD with hypoxia (Acute) Hypertensive crisis (Acute) Diarrhea (Acute) Gastroenteritis (Acute) Viral syndrome (Acute) COPD (chronic obstructive pulmonary disease) (Acute) Medical history: Reports: asthma, coronary artery disease, dementia, GERD, hyperlipidemia, hypertension Surgical history ED: Reports: cholecystectomy, hysterectomy - Social History smoking status: Former smoker Alcohol use: Reports: None Drug use: Reports: unknown Physical Exam Limitations: no limitations General appearance: alert, other (in pain with examination) Head: atraumatic, normocephalic, normal inspection Eye: Present: normal appearance, miosis (constriction). Absent: conjunctival injection ENT: normal exam, mucous membranes moist, normal external ear exam Neck: Present: normal inspection. Absent: tenderness, lymphadenopathy Chest: Present: normal inspection, symmetric chest wall rise. Absent: tenderness Respiratory: Present: normal lung sounds bilaterally, wheezes (expiratory and lateral) Cardiovascular: Present: regular rate, normal rhythm. Absent: systolic murmur, diastolic murmur Abdominal: Present: soft, diminished bowel sounds. Absent: distention, tenderness, guarding, rebound, rigidity Extremities: Present: normal inspection. Absent: pedal edema Hip/Pelvis: Present: tenderness (severe pain with movement), external rotation Neurological: Present: alert Psychiatric: Present: normal affect, normal mood, agitated. Absent: depressed, anxious Skin: Present: warm, dry, intact, normal color. Absent: cyanosis, diaphoresis, erythema Course Vital Signs Temperature 97.1 F 04/18/18 13:36 Pulse Rate 86 04/18/18 13:36 Respiratory Rate 20 04/18/18 13:36 Blood Pressure 93/66 04/18/18 13:36 Pulse Oximetry (%) 100 04/18/18 13:36 Temperature 97.1 F 04/18/18 13:36 Pulse Rate 96 H 04/18/18 15:59 Respiratory Rate 12 04/18/18 15:59 Blood Pressure 117/54 04/18/18 15:46 Pulse Oximetry (%) 98 04/18/18 15:59 Extremity Injury, Lower - MDM Narrative Medical decision making narrative: Patient provided 1 mg Ativan to help calm her during CTs. Patient provided 1 mg Dilaudid for pain relief upon return to room. Patient is slightly anemic which is normal for patient. RBC 3.46 Hgb 9.8 HCT 30.7 RDW 15.9 Patient kidney function is elevated compared to March labs BUN 37- 49 Creatinine 0.9 -1.9 PT/INR 13.5/[address] Begum on patient presentation and diagnostics. Consulted with Dr. Martines on patient presentation and diagnostics and family concerns on options. Dr. Martines advised he would be in to visit with family. Patient to be admitted and have surgery in the a.m. - Lab Data Lab results reviewed: Yes I reviewed the patient's lab results. Result diagrams: 04/18/18 14:21 04/18/18 14:21 Lab Results 04/18/18 04/18/18 04/18/18 Range/Units 14:21 14:21 14:21 WBC 9.4 (4.5-11.0) K/mcL RBC 3.46 L (4.00-5.20) M/mcL Hgb 9.8 L (12.0-15.0) g/dL Hct 30.7 L (36.0-48.0) % MCV 88.7 (80.0-100.0) fL MCH 28.4 (26.0-34.0) pg MCHC 32.0 (31.0-36.0) g/dL RDW 15.9 H (11.5-14.5) % Plt Count 398 (140-440) K/mcL MPV 9.8 (7.4-10.4) fL Gran % 71.2 (38.0-78.0) % Lymph % (Auto) 17.4 (15.5-49.0) % Parke % (Auto) 8.9 (1.0-12.0) % Eos % (Auto) 2.0 (0.0-7.0) % Baso % (Auto) 0.5 (0.0-2.0) % Gran # 6.7 (1.8-8.0) K/mcL Lymph # (Auto) 1.6 (1.5-4.8) K/mcL Parke # (Auto) 0.8 (0.1-0.9) K/mcL Eos # (Auto) 0.2 (0.0-0.7) K/mcL Baso # (Auto) 0 (0.0-0.3) K/mcL PT 13.5 (11.9-14.5) sec INR 1.0 (0.9-1.1) Sodium 143 (133-145) mmol/L Potassium 3.9 (3.3-5.1) mmol/L Chloride 96 (96-108) mmol/L Carbon Dioxide 32 H (22-30) mmol/L Anion Gap 15.0 (8-16) BUN 49 H (8-23) mg/dl Creatinine 1.9 H (0.6-1.1) mg/dl GFR Calculation 23 Glucose 147 H (70-105) mg/dL Calcium 9.8 (8.6-10.4) mg/dl Total Bilirubin 0.3 (0.0-1.0) mg/dL AST 31 (0-37) U/l ALT 29 (0-40) U/l Alkaline Phosphatase 117 (39-117) U/L Total Protein 7.7 (5.9-8.4) gm/dL Albumin 3.4 (3.2-5.2) gm/dL Globulin 4.3 H (2.2-3.7) gm/dL Albumin/Globulin Ratio 0.8 L (1.0-2.3) - Radiology Data Radiology results reviewed: Yes I reviewed the patient's radiology results. Head and neck CT: Negative Hip x-ray: Right femoral neck fracture Chest x-ray: Radiologist called and advised on CT results, reports pending. Disposition Pt seen by RAIL MANAGER/PA only: No (Kel) Clinical Impression: Femoral neck fracture Qualifiers: Encounter type: initial encounter Fracture type: closed Laterality: right Qualified Code(s): S72.001A - Fracture of unspecified part of neck of right femur, initial encounter for closed fracture Disposition: Xfer As Inpt ([facility]) Condition: Fair Referrals: Lily Gale MD [Primary Care Provider] - Time of Disposition: 16:22
[2018-04-18] MEDS ORDERED: 0.9 % SODIUM CHLORIDE 1,000 ML IV ONE (14:36)
[2018-04-18 15:03] LABS: Basophils # (Auto) 0 K/mcL (0.0-0.3); Basophils % (Auto) 0.5 % (0.0-2.0); Eosinophils # (Auto) 0.2 K/mcL (0.0-0.7); Granulocytes % (Auto) 71.2 % (38.0-78.0); Lymphocytes # (Auto) 1.6 K/mcL (1.5-4.8); Lymphocytes % (Auto) 17.4 % (15.5-49.0); Mean Cell Volume 88.7 fL (80.0-100.0); Monocytes # (Auto) 0.8 K/mcL (0.1-0.9); Monocytes % (Auto) 8.9 % (1.0-12.0); Platelet Count 398 K/mcL (140-440); RBC 3.46 M/mcL (4.00-5.20); Red Cell Distribution Width 15.9 % (11.5-14.5)
[2018-04-18 15:15] LABS: ALT/SGPT 29 U/l (0-40); Albumin 3.4 gm/dL (3.2-5.2); Albumin/Globulin Ratio 0.8 (1.0-2.3); Alkaline Phosphatase 117 U/L (39-117); Blood Urea Nitrogen 49 mg/dl (8-23)
[2018-04-18] MEDS ORDERED: HYDROmorphone 2 MG/ML VIAL IV SCH (15:15)
--- NOTE | 2018-04-18 17:33 | Internal Med History&Physical ---
Medical - H&P: HPI Patient information: Note initiated : 04/18/18 at 5:30 pm Service Date, if different from initiated Date: [] Patient: Janelle Lees a 87 y/o F admitted on for Fall, hip pain. Chief Complaint: [] History of present illness: Ms. Lees is a 87 year old F who lives in a residential, patient has advanced dementia was found down complaining of hip pain today. The patient is a poor historian and the fall was unwitnessed. The patient is comfort care patient at the residential at this time. The patient was brought to the hospital for further evaluation. Most of my history is from chart review, at the time of my evaluation patient had received pain medications and was drowsy unable to provide any meaningful history. Based on chart review patient is demented and is not able to speak an yways. According to the physician in the emergency room, the patient had a fall, pain on the right side of the hip. She had x-rays of the hip done which shows a right hip fracture. The patient family wanted this fracture to be fixed. Orthopedics was consulted who evaluated the patient and plans to take the patient for surgery tomorrow at 10 AM. The patient has advanced dementia and is comfort care patient the patient was admitted to this hospital 1 month ago for the diagnosis of acute pulmonary embolism. She was discharged on oral Eliquis, subsequently she presented to the emergency room with GI bleed. On reviewing the GI notes from [facility] at that time no endoscopy was performed, family elected to stop the anticoagulants and treatment, they refused an IVC filter. The plan to keep the patient comfortable. At present patient is not on anticoagulation In the emergency room patient is afebrile, temperature 97.1, heart rate 86, respirations 20, blood pressure 117/54, saturating 100% on 2 L of oxygen. Chest x-ray shows right basilar atelectasis otherwise negative Labs show a WBC count of 9.4, hemoglobin 9.8 platelets 398, INR 1.0. Sodium 143 potassium 3.9 creatinine is 1.9 which is new baseline is normal bicarbonate 32 glucose 147 Patient is being admitted to the hospital for management of hip fracture ROS unobtainable: due to mental status Medical - H&P: PMH Medical history: Medical History Weakness (Acute) COPD with hypoxia (Acute) Hypertensive crisis (Acute) Diarrhea (Acute) Gastroenteritis (Acute) Viral syndrome (Acute) COPD (chronic obstructive pulmonary disease) (Acute) Family history: reviewed and not pertinent Social history: lives at snf, comfort care patient Medical - H&P: Meds Home Medications Medication Instructions Recorded Confirmed Type Atenolol [Tenormin] 50 mg PO BID 09/11/15 04/18/18 History Budesonide/Formoterol Fumarate 10.2 gm IH BID 09/11/15 04/18/18 History [Symbicort 80-4.5 Mcg Inhaler] Diltiazem HCl [Matzim LA] 240 mg PO DAILY 09/11/15 04/18/18 History Donepezil HCl [Donepezil HCl Odt] 5 mg PO DAILY 09/11/15 04/18/18 History Isosorbide Mononitrate [Isosorbide 30 mg PO DAILY 09/11/15 04/18/18 History Mononitrate ER] Meclizine [Antivert] 25 mg PO TIDP PRN 09/11/15 04/18/18 History Simvastatin [Zocor] 10 mg PO HS 09/11/15 04/18/18 History Vitamin D3 1,000 unit PO DAILY 09/11/15 04/18/18 History Lisinopril [Zestril] 10 mg PO DAILY #30 tablet 10/10/15 04/18/18 Rx Acetaminophen [Non-Aspirin Extra 500 mg PO TID 04/18/18 04/18/18 History Strength] Bisacodyl [Dulcolax] 10 mg ID PRN PRN 04/18/18 04/18/18 History Bisacodyl [Gentle Laxative] 10 mg PO DAILYP PRN 04/18/18 04/18/18 History LORazepam [Ativan] 0.5 mg PO HSP PRN 04/18/18 04/18/18 History LORazepam [Ativan] 0.5 mg PO HSP PRN 04/18/18 04/18/18 History Losartan [Cozaar] 50 mg PO DAILY 04/18/18 04/18/18 History Magnesium Hydroxide [Milk of 30 ml PO PRN PRN 04/18/18 04/18/18 History Magnesia] Metoprolol Tartrate [Lopressor] 25 mg PO BID 04/18/18 04/18/18 History Na Phos,M-B/Na Phos,Di-Ba [Fleet 118 ml RC PRN PRN 04/18/18 04/18/18 History Enema Extra] Omeprazole [PriLOSEC] 40 mg PO DAILY 04/18/18 04/18/18 History Potassium Chloride [Klor-Con 10] 10 meq PO DAILY 04/18/18 04/18/18 History Torsemide [Demadex] 20 mg PO DAILY 04/18/18 04/18/18 History Tuberculin,Purif.prot.deriv. 5 tub ID ONCE 04/18/18 04/18/18 History [Tubersol] busPIRone [Buspar] 5 mg PO BID 04/18/18 04/18/18 History busPIRone [Buspar] 10 mg PO TID 04/18/18 04/18/18 History traMADol [Ultram] 25 mg PO PRN PRN 04/18/18 04/18/18 History Allergies Allergy/AdvReac Type Severity Reaction Status Date / Time No Known Drug Allergies Allergy Verified 04/18/18 13:36 Medical - H&P: Exam - Constitutional Vitals: Temp Pulse Resp BP Pulse Ox 97.1 F 96 H 12 117/54 98 04/18/18 13:36 04/18/18 15:59 04/18/18 15:59 04/18/18 15:46 04/18/18 15:59 Exam: GENERAL: The patient is a frail lady in no apparent distress. Is drowsy, x 0. VITAL SIGNS: Reviewed and as noted elsewhere. HEENT: Head is normocephalic and atraumatic. Extraocular muscles are intact. Pupils are equal, round, and reactive to light. Nares appeared normal. Mouth appears any without lesions. Mucous membranes are dry NECK: Normal to inspection, Supple, No lymphadenopathy or thyromegaly. LUNGS: Air entry equal on both sides, no wheezing, but prolonged exp phase noted, no crackles or rhonchi noted. No accessory muscles of respiration HEART: Regular rate and rhythm normal, S1 and S2 heard, no Gallop, S3 or Rub Noted, No Gross murmur heard. ABDOMEN: Soft, nontender, and nondistended. Positive bowel sounds. No hepatosplenomegaly was noted. EXTREMITIES: No cyanosis, clubbing, rash, lesions or edema. NEUROLOGIC: Cranial nerves II through XII are grossly intact. pt drowsy, moving all extremities PSYCHIATRIC: drowsy SKIN: No ulceration or wounds noted, No jaundice, No rash noted. Medical - H&P: Reslt - Labs CBC & Chem 7: 04/18/18 14:21 04/18/18 14:21 Labs: Short CBC 04/18/18 Range/Units 14:21 WBC 9.4 (4.5-11.0) K/mcL Hgb 9.8 L (12.0-15.0) g/dL Hct 30.7 L (36.0-48.0) % Plt Count 398 (140-440) K/mcL BMP 04/18/18 14:21 Sodium 143 Potassium 3.9 Chloride 96 Carbon Dioxide 32 H BUN 49 H Creatinine 1.9 H Glucose 147 H Calcium 9.8 Liver Function 04/18/18 Range/Units 14:21 Total Bilirubin 0.3 (0.0-1.0) mg/dL AST 31 (0-37) U/l ALT 29 (0-40) U/l Alkaline Phosphatase 117 (39-117) U/L Albumin 3.4 (3.2-5.2) gm/dL Medical - H&P: A/P - Narrative A/P Narrative: A/P Acute right hip fracture - Plan for surgery tomorrow -High risk surgery -high risk for elis op, dvt/PE given recent pulmonary embolus, and family not electing to treat same. -pain management, goal is comfort GI bleed -while on anticoagulatin, hb is stable, off eliquis Acute kidney injury -likely pre renal, IVF COPD -bronchodilators, q6hrs for now HTN -continue betablockers, hold katty/arb/diuretics HLD -continue statin Dementia -continue home meds DVT -SCD DNR comfort care status.
[2018-04-18] MEDS ORDERED: ACETAMINOPHEN 325 MG TABLET PO PRN (17:54)
[2018-04-18] MEDS ORDERED: NALOXONE HCL 0.4 MG/ML VIAL IV PRN (17:54)
[2018-04-18] MEDS ORDERED: BISACODYL 10 MG PO PRN (17:54)
[2018-04-18] MEDS ORDERED: oxyCODONE HCL 5 MG TABLET PO PRN (17:54)
[2018-04-18] MEDS ORDERED: BISACODYL 10 MG SUPP.RECT PR PRN (17:54)
[2018-04-18] MEDS ORDERED: ALBUTEROL SULFATE 2.5 MG/3 ML NEBULIZER NEB PRN (17:54)
[2018-04-18] MEDS ORDERED: ONDANSETRON 4 MG/2 ML VIAL IV PRN (17:54)
[2018-04-18] MEDS ORDERED: MECLIZINE 25 MG TABLET PO PRN (17:54)
[2018-04-18] MEDS ORDERED: HYDROmorphone 2 MG/ML VIAL IV PRN (17:54)
[2018-04-18] MEDS ORDERED: DEXTROSE 5%-1/2NS W/20MEQ KCL 1,000 ML IV SCH (18:00)
--- NOTE | 2018-04-18 18:07 | XRay Report ---
CLINICAL INFORMATION: Hypoxia wheezing recent trauma COMPARISON: 03/08/2018 and 05/09/2016 chest x-ray FINDINGS: Heart size, mediastinum and pulmonary vessels are unremarkable. The lung volumes are elevated there is mild wall thickening of the central bronchi compatible with chronic bronchitis or asthma. Minor bibasilar atelectasis noted, but no infiltrates. No evidence of effusion or pneumothorax. No fractures identified. IMPRESSION: Chronic bronchitis or asthma - stable. No acute cardiopulmonary disease or posttraumatic change Interpreted and Authenticated by: Isaac Real 04/18/18
--- NOTE | 2018-04-18 18:10 | History and Physical Report ---
DATE OF ADMISSION: 04/18/2018 ADMISSION CONSULTATION IDENTIFICATION: This is an 87-year-old female. CHIEF COMPLAINT: Right femoral neck fracture. HISTORY OF PRESENT ILLNESS: The patient has resided in a care center for the past month. She was doing well without issues, but does have a complicating diagnoses of quite profound Alzheimer's dementia and she has also been somewhat limited in her ambulation. She sustained a fall after lunch. She was transported to the [facility] emergency room where radiographs have demonstrated a fracture of the right femoral neck. She is presently quite sedated and does not really present much of a history of present illness per her report, but clearly does have pain with any motion and the fracture is quite obvious radiographically. PAST MEDICAL HISTORY: Significant for, again quite profound Alzheimer's, although she does recognize her and they interact at the care center. He visits twice a day. She has a history of reflux disease, COPD, anxiety, hypertension, hyperlipidemia. She does have a DNR. PAST SURGICAL HISTORY: Noncontributory to this present problem. FAMILY HISTORY: Noncontributory to this problem. REVIEW OF SYSTEMS: She has generally been in a good state of health, but did have recently Eliquis DC'd because of some gastric bleeding. Otherwise, balance of 10-point review of systems is negative. MEDICATIONS: Include atenolol, Symbicort, diltiazem, donepezil, isosorbide, meclizine, Zocor, Colace, Ativan, Cozaar, Lopressor, omeprazole and BuSpar. ALLERGIES: None. PHYSICAL EXAMINATION: GENERAL: She is again quite sedated. HEAD: Normocephalic, atraumatic. EYES: PERRLA. Conjunctivae clear. ENT: Generally within normal limits. NECK: Supple without pain on range of motion. HEART: Regular. LUNGS: Clear. ABDOMEN: Benign. LOWER EXTREMITIES: Her right lower extremity is shortened and rotated. She does have pain with any range of motion. She does have brisk capillary refill. NEURO: Somewhat complicated by the fact that she is again quite sedated. IMAGING: Her radiographs demonstrate a right femoral neck fracture, which is displaced. IMPRESSION: Femoral neck fracture on the right. This transcervical fracture is significantly displaced. PLAN: We have reviewed treatment options with the family after discussing this at length. They would like to proceed with a hemiarthroplasty as discussed. They would like to continue her DNR status, which is a decision she made long ago. We did discuss this. They would be amenable to aggressive medication management and potentially even a cardioversion, but no endotracheal tube were extended management. Plan, we will proceed with a hemiarthroplasty, right hip. GDD:in Job ID: [id number] Doc ID: [id number] Lorne Martines MD
--- NOTE | 2018-04-18 18:10 | Cat Scan Report ---
CLINICAL INFORMATION: Trauma - fall COMPARISON: 09/11/2015 TECHNIQUE: 2.5 mm helical slices were obtained in the skull base to vertex. Following reconstruction, axial reformatted images were reviewed at bone and parenchymal windows. The exam was performed using radiation dose optimization techniques including, but not limited to, automated exposure control, adjustment of the mA and/or kV according to patient size and use of iterative reconstruction technique. FINDINGS: The ventricles, sulci, fissures, and cisterns are symmetrically enlarged patible with moderate age-related atrophy - no subdural hemorrhage or extra-axial fluid collection appreciated. Moderate patchy chronic ischemic changes in the deep cerebral white matter, expected for age, are stable. There is no intracerebral hemorrhage, mass effect, edema or other acute intracerebral abnormality. Bone windows show no fracture or other osseous abnormality. IMPRESSION: Mild atrophy and moderate patchy chronic ischemic changes in the deep cerebral white matter expected for age and unchanged from comparison CT 2.5 years ago. There is no intracerebral hemorrhage or other acute posttraumatic change. Interpreted and Authenticated by: Isaac Real 04/18/18
--- NOTE | 2018-04-18 18:16 | Cat Scan Report ---
CLINICAL INFORMATION: Trauma - fall COMPARISON: None. TECHNIQUE: 2.5 mm helical slices were obtained from the skull base through the superior T2 end plate. Following reconstruction, 2.5 mm sagittal, coronal and axial reformations , with and without disc space angling, were processed. The exam was reviewed at bone and soft tissue windows. The exam was performed using radiation dose optimization techniques including, but not limited to, automated exposure control, adjustment of the mA and/or kV according to patient size and use of iterative reconstruction technique. FINDINGS: Sagittal and coronal reformatted images show the cervical spine to be anatomically aligned. There is no fracture or other osseous abnormality. The cervical cord is normal in contour and caliber without focal lesion. All disc levels are unremarkable - no evidence of protrusion. Central canal, lateral recesses and IV foramen are normal width at each level. Moderate calcific plaque present in both proximal internal carotid arteries. IMPRESSION: No fracture or posttraumatic change. The cervical spine is unremarkable Moderate calcific plaque in both proximal internal carotid arteries. Suggest carotid duplex study to evaluate for stenosis Interpreted and Authenticated by: Isaac Real 04/18/18
--- NOTE | 2018-04-18 18:19 | XRay Report ---
CLINICAL INFORMATION: Fall, right hip pain COMPARISON: 11/17/2017 FINDINGS: A transverse, acute fracture through the right femoral neck is appreciated. The femoral neck is displaced anteriorly less than 1 cm segment with respect to the femoral head. Moderate degenerative changes noted both SI and hip joints show slight progression from the comparison study five months ago. IMPRESSION: Acute, transversely oriented mildly displaced fracture of the right femoral neck. Moderate bilateral hip and SI degeneration Interpreted and Authenticated by: Isaac Real 04/18/18
[2018-04-18] MEDS: IPRATROPIUM/ALBUTEROL 3 ML AMPUL.NEB NEB SCH (18:58)
[2018-04-18 19:25] LABS: Appearance,Urine CLEAR; Bilirubin,Urine NEG (NEG); Color,Urine YELLOW; Glucose,Urine (UA) NEGATIVE (NEG); Leukocyte Esterase,Urine NEG /uL (NEG); Protein,Urine NEG (NEG); Specific Gravity,Urine 1.012 (1.000-1.035); Urine Blood NEG mg/dL (<0.03); Urobilinogen,Urine NEG (NEG)
[2018-04-18] MEDS: 0.9 % SODIUM CHLORIDE 10 ML SYRINGE IV SCH (20:25)
[2018-04-18] MEDS ORDERED: ACETAMINOPHEN 500 MG TABLET PO ONE (20:31)
[2018-04-18] MEDS: busPIRone 5 MG TABLET PO SCH (20:34)
[2018-04-18] MEDS ORDERED: [UNRECOGNIZED DRUG - REMARK] PO SCH (21:00)
[2018-04-18] MEDS ORDERED: busPIRone 5 MG TABLET PO SCH (21:00)
[2018-04-18] MEDS ORDERED: ACETAMINOPHEN 325 MG TABLET PO SCH (21:00)
[2018-04-18] MEDS ORDERED: LORazepam 0.5 MG TABLET PO PRN (21:00)
[2018-04-18] MEDS ORDERED: SENNOSIDES 1 TABLET PO SCH (21:00)
[2018-04-18] MEDS ORDERED: ATENOLOL 50 MG TABLET PO SCH (21:00)
[2018-04-18] MEDS ORDERED: SIMVASTATIN 10 MG TABLET PO SCH (21:00)
[2018-04-18] MEDS: ACETAMINOPHEN 500 MG TABLET PO SCH (21:09)
--- NOTE | 2018-04-18 21:33 | Emergency Department Note ---
ED Note Addendum Note Addendum: I reviewed this case of Regla DELGADILLO. I agree with her evaluation management documentation. In particular I looked at the patient's x-ray and note femoral neck fracture on the right. Dr. Martines and the hospitalist, Dr. Mcfarland have been consulted. Patient will be admitted
[2018-04-19] MEDS: IPRATROPIUM/ALBUTEROL 3 ML AMPUL.NEB NEB SCH ×4 (03:06→18:58)
[2018-04-19] MEDS: 0.9 % SODIUM CHLORIDE 10 ML SYRINGE IV SCH ×2 (04:05→21:18)
[2018-04-19 05:28] LABS: Mean Cell Volume 88.2 fL (80.0-100.0); Mean Corpuscular HGB Conc 32.3 g/dL (31.0-36.0); Platelet Count 270 K/mcL (140-440); RBC 2.95 M/mcL (4.00-5.20); Red Cell Distribution Width 15.8 % (11.5-14.5)
[2018-04-19 05:57] LABS: ALT/SGPT 24 U/l (0-40); Albumin 2.8 gm/dL (3.2-5.2); Albumin/Globulin Ratio 0.7 (1.0-2.3); Alkaline Phosphatase 94 U/L (39-117); Blood Urea Nitrogen 44 mg/dl (8-23)
[2018-04-19 06:11] LABS: Lymphocytes % 16 % (15-49); Monocytes % (Manual) 2 % (1-12); Platelet Estimate NORMAL (NORMAL); RBC Morphology NORMAL (NORMAL); Segmented Neutrophils % 82 % (38-78)
[2018-04-19] MEDS ORDERED: OMEPRAZOLE 20 MG CAPSULE PO SCH (07:30)
[2018-04-19] MEDS: busPIRone 5 MG TABLET PO SCH ×2 (08:15→21:17)
[2018-04-19] MEDS ORDERED: METHOCARBAMOL 1,000 MG/10 ML VIAL IV PRN ×2 (08:26→12:22)
[2018-04-19] MEDS ORDERED: HYDROmorphone 2 MG/ML VIAL IV PRN ×3 (08:26→19:28)
[2018-04-19] MEDS ORDERED: ISOSORBIDE MONONITRATE 30 MG TAB.XL.24H PO SCH (09:00)
[2018-04-19] MEDS ORDERED: DONEPEZIL 10 MG TABLET PO SCH (09:00)
[2018-04-19] MEDS ORDERED: DILTIAZEM 240 MG CAP.XL.24H PO SCH (09:00)
[2018-04-19] MEDS: ACETAMINOPHEN 500 MG TABLET PO SCH ×2 (09:24→21:17)
[2018-04-19] MEDS ORDERED: GENTAMICIN SULFATE 800 MG/20 ML VIAL IR ONE (10:38)
[2018-04-19] MEDS ORDERED: FLUMAZENIL 0.1 MG/ML ML IV PRN ×2 (10:54→12:22)
[2018-04-19] MEDS ORDERED: fentaNYL 100 MCG/2 ML VIAL IV PRN ×2 (10:54→12:22)
[2018-04-19] MEDS ORDERED: LACTATED RINGERS 250 ML IV PRN ×2 (10:54→12:22)
[2018-04-19] MEDS ORDERED: diphenhydrAMINE 50 MG/ML VIAL IV PRN ×2 (10:54→12:22)
[2018-04-19] MEDS ORDERED: MEPERIDINE 25 MG/ML SYRINGE IV PRN ×2 (10:54→12:22)
[2018-04-19] MEDS ORDERED: IPRATROPIUM/ALBUTEROL 3 ML AMPUL.NEB NEB PRN ×2 (10:54→12:22)
[2018-04-19] MEDS ORDERED: PROMETHAZINE 25 MG/ML VIAL IV PRN ×2 (10:54→12:22)
[2018-04-19] MEDS ORDERED: NALOXONE HCL 0.4 MG/ML VIAL IV PRN ×4 (10:54→19:28)
[2018-04-19] MEDS ORDERED: ONDANSETRON 4 MG/2 ML VIAL IV PRN ×4 (10:54→19:28)
[2018-04-19] MEDS ORDERED: ACETAMINOPHEN 850 MG/85 ML BOTTLE IV ONE (10:54)
[2018-04-19] MEDS ORDERED: LACTATED RINGERS 1,000 ML IV SCH ×2 (11:00→12:22)
--- NOTE | 2018-04-19 11:34 | Brief Operative Note ---
Date of procedure: 04/19/18 Pre-op diagnosis: R hip fracture Post-op diagnosis: same Procedure: hemiarthroplasty Grafts/Implants: Yes (depuy) Anesthesia: GETA Complications: none Surgeon: Lorne Martines Director Of The [employer] Facility: Althea Correa Estimated blood loss (cc): 30 Specimens Removed/Pathology: none sent Condition: stable Disposition: PACU
[2018-04-19] MEDS ORDERED: DEXTROSE 5%-1/2NS W/20MEQ KCL 1,000 ML IV SCH (12:22)
[2018-04-19] MEDS ORDERED: MECLIZINE 25 MG TABLET PO PRN ×2 (12:22→19:28)
[2018-04-19] MEDS ORDERED: ALBUTEROL SULFATE 2.5 MG/3 ML NEBULIZER NEB PRN ×2 (12:22→19:28)
[2018-04-19] MEDS ORDERED: BISACODYL 10 MG SUPP.RECT PR PRN ×2 (12:22→19:28)
[2018-04-19] MEDS ORDERED: oxyCODONE HCL 5 MG TABLET PO PRN (12:22)
--- NOTE | 2018-04-19 13:59 | Internal Med Progress Note ---
Medical - PN: Subj Patient information: Note initiated : 04/19/18 at 1:57 pm Service Date, if different from initiated Date: [] Patient: Janelle Lees 87 y/o F admitted on 04/18/18 for Fall, hip pain. Chief Complaint: [] Interval history: Patient seen, status post surgery was drowsy with pinpoint pupils. Patient nonverbal Pertinent ROS: Unable - Constitutional Vitals: Vital Signs Temp Pulse Resp BP Pulse Ox 98.5 F 98 H 14 135/62 98 04/19/18 12:12 04/19/18 13:27 04/19/18 13:27 04/19/18 12:12 04/19/18 13:27 Period Temp Pulse Resp BP Sys/Ramsey Pulse Ox Last 24 Hr 97.7 F-99.1 F 80-120 11-29 108-180/31-105 91-100 Intake and Output 04/18/18 04/19/18 04/19/18 21:59 05:59 13:59 Intake Total 1000 / 1240 240 / 1240 1185 / 1185 Output Total 325 / 325 250 / 250 Balance 1000 / 915 -85 / 915 935 / 935 Weight 127 lb 5 oz Intake & Output: Intake & Output 04/18/18 04/19/18 04/19/18 21:59 05:59 13:59 Intake Total 1000 / 1240 240 / 1240 1185 / 1185 Output Total 325 / 325 250 / 250 Balance 1000 / 915 -85 / 915 935 / 935 Weight 127 lb 5 oz Intake: IV 1000 / 1000 85 / 85 Sodium Chloride 0.9% 1,000 ml @ 1000 / 1000 Wide Open IV BOLUS ONE Rx#: [id number] Oral 240 / 240 IV - Manual Only 1100 / 1100 Output: Urine Catheter Amount 325 / 325 250 / 250 Other: Meal Dinner Percent of Meal Consumed 25% Feeding Ability Total Assistance Urine Appearance Uretheral (Baker) Clear Urine Color Uretheral (Baker) Bright Yellow Exam: Constitutional; Afebrile,drowsy Respiratory system: Air Entry equal on both sides, No crackles or wheezing, no rhonchi. CVS- Rate rhythm regular, S1,S2 heard, no gallop, no rub. Abdomen- Soft nontender abdomen, no organomegaly, no tenderness, no guarding or rigidity, Medical - PN: Obj Da - Labs CBC & Chem 7: 04/19/18 04:12 04/19/18 04:12 Labs: Abnormal Lab Results 04/19/18 04/19/18 04/18/18 04:12 04:12 14:21 WBC 15.0 H RBC 2.95 L Hgb 8.4 L Hct 26.0 L RDW 15.8 H Seg Neutrophils % 82 H Carbon Dioxide 32 H BUN 44 H 49 H Creatinine 1.7 H 1.9 H Glucose 130 H 147 H Albumin 2.8 L Globulin 3.8 H 4.3 H Albumin/Globulin Ratio 0.7 L 0.8 L 04/18/18 14:21 WBC RBC 3.46 L Hgb 9.8 L Hct 30.7 L RDW 15.9 H Seg Neutrophils % Carbon Dioxide BUN Creatinine Glucose Albumin Globulin Albumin/Globulin Ratio Meds: Medications Acetaminophen (Tylenol) 1,000 mg PO TID [facility] Albuterol Sulfate (Ventolin) 2.5 mg NEB Q2HP PRN PRN Reason: Shortness Of Breath Albuterol/Ipratropium (Duoneb) 3 ml NEB Q6HRT [facility] Last Admin: 04/19/18 13:18 Dose: 3 ml Documented by: Bisacodyl (Dulcolax) 10 mg MO PRN PRN PRN Reason: Constipation Buspirone HCl (Buspar) 10 mg PO TID [facility] Diltiazem HCl (Cardizem Cd) 240 mg PO DAILY [facility] Heparin Sodium (Porcine) (Heparin) 5,000 unit SQ Q12 [facility] Hydromorphone HCl (Dilaudid) 0.5 - 1 mg IV Q2HP PRN PRN Reason: PAIN LEVEL > 6 Potassium Chloride/Dextrose/Sod Cl (Dextrose 5%-1/2ns W/20meq Kcl) 1,000 mls @ 50 mls/hr IV .Q20H [facility] Last Admin: 04/19/18 12:45 Dose: 50 mls/hr Documented by: Isosorbide Mononitrate (Imdur) 30 mg PO DAILY [facility] Lorazepam (Ativan) 0.5 mg PO HSP PRN PRN Reason: Anxiety Meclizine HCl (Antivert) 25 mg PO TIDP PRN PRN Reason: Vertigo Methocarbamol (Robaxin) 750 mg IV Q6HP PRN PRN Reason: Muscle Spasm Naloxone HCl (Narcan) 0.1 mg IV Q2MIN PRN PRN Reason: Opiate Reversal Omeprazole (Prilosec) 40 mg PO ACB [facility] Ondansetron HCl (Zofran) 4 mg IV Q6HP PRN PRN Reason: Nausea And Vomiting Oxycodone HCl (Roxicodone) 5 mg PO Q4HP PRN PRN Reason: PAIN LEVEL 3-6 Budesonide/Formoterol Fumarate [Symbicort 80-4.5 Mcg] Inhaler 1 dose INH BID [facility] Senna (Senokot) 2 tab PO HS [facility] Simvastatin (Zocor) 10 mg PO HS [facility] Sodium Chloride (Saline Flush) 10 ml IV Q8 [facility] Medical - PN: A/P - Time Spent With Patient Total time spent is greater than 50% in coordination of care (as documented) at patient's floor/unit and/or counseling patient: - Narrative A/P Narrative: A/P Acute right hip fracture Status post surgery, did well according to the surgeon. High risk for perioperative mortality given history of pulmonary embolism within the last month patient is not on anticoagulation because of upper GI bleed GI bleed -while on anticoagulatin, hb is stable, off eliquis Acute kidney injury -likely pre renal, IVF COPD -bronchodilators, q6hrs for now HTN -continue beta blockers, hold katty/arb/diuretics HLD -continue statin Dementia -continue home meds DVT -SCD _hep sq DNR comfort care status. Discharge to [facility] once stable Medical - PN: Qual - VTE Deep Vein Thrombosis/Pulmonary Embolism Present on Admission: No
[2018-04-19] MEDS ORDERED: 0.9 % SODIUM CHLORIDE 10 ML SYRINGE IV SCH (14:00)
[2018-04-19] MEDS ORDERED: ACETAMINOPHEN 500 MG TABLET PO SCH (15:00)
[2018-04-19] MEDS ORDERED: busPIRone 5 MG TABLET PO SCH (15:00)
[2018-04-19] MEDS: DEXTROSE 5%-1/2NS W/20MEQ KCL 1,000 ML IV SCH (19:49)
[2018-04-19] MEDS ORDERED: LORazepam 0.5 MG TABLET PO PRN ×2 (21:00)
[2018-04-19] MEDS ORDERED: SENNOSIDES 1 TABLET PO SCH ×2 (21:00)
[2018-04-19] MEDS ORDERED: HEPARIN 5,000 UNIT/ML VIAL SQ SCH (21:00)
[2018-04-19] MEDS ORDERED: SIMVASTATIN 10 MG TABLET PO SCH ×2 (21:00)
[2018-04-19] MEDS: HEPARIN 5,000 UNIT/ML VIAL SQ SCH (21:16)
[2018-04-19] MEDS: FORMOTEROL FUMARATE INH SCH (21:18)
[2018-04-19] MEDS: oxyCODONE HCL 5 MG TABLET PO PRN (21:18)
[2018-04-19] MEDS: BUDESONIDE INH SCH (21:18)
[2018-04-19] MEDS: ceFAZolin 1 GM VIAL IV SCH (22:06)
[2018-04-19] MEDS: METHOCARBAMOL 1,000 MG/10 ML VIAL IV PRN (22:24)
[2018-04-20] MEDS: IPRATROPIUM/ALBUTEROL 3 ML AMPUL.NEB NEB SCH ×2 (02:59→06:52)
[2018-04-20] MEDS: ceFAZolin 1 GM VIAL IV SCH (05:54)
[2018-04-20] MEDS: 0.9 % SODIUM CHLORIDE 10 ML SYRINGE IV SCH (06:11)
[2018-04-20] MEDS: oxyCODONE HCL 5 MG TABLET PO PRN ×2 (07:01→11:18)
[2018-04-20] MEDS: METHOCARBAMOL 1,000 MG/10 ML VIAL IV PRN (07:02)
--- NOTE | 2018-04-20 07:29 | Orthopedic Progress Note ---
Subjective Patient information: Note initiated : 04/20/18 at 7:27 am Service Date, if different from initiated Date: [] Patient: Janelle Lees a 87 y/o F admitted on 04/18/18 for Fall, hip pain. Chief Complaint: [S/P right hip hemiarthroplasty] Ms. Luis is resting in her bed comfortably. She has not ambulated since surgery. Denies any significant pain or calf tenderness. Principal diagnosis: Right femoral neck fracture Objective Vital signs: Vital Signs Temp Pulse Pulse Resp BP BP Pulse Ox 04/20/18 06:58 110 H 18 98 04/20/18 06:28 96.6 F L 116 H 22 154/72 99 04/20/18 03:33 97.5 F 116 H 18 154/68 93 04/19/18 23:40 98.0 F 107 H 14 160/60 97 04/19/18 19:40 80 16 04/19/18 19:23 98.6 F 108 H 16 116/69 92 04/19/18 19:01 105 H 16 99 04/19/18 18:58 112 H 16 04/19/18 16:00 98.5 F 80 20 129/61 97 04/19/18 15:20 97.8 F 24 H 99/59 92 04/19/18 14:57 129/61 99 04/19/18 13:50 111/55 100 04/19/18 13:27 98 H 14 98 04/19/18 13:20 121/64 100 04/19/18 13:18 102 H 14 04/19/18 13:05 117/53 98 04/19/18 12:50 120/51 98 04/19/18 12:35 139/62 94 04/19/18 12:12 98.5 F 95 H 14 135/62 100 04/19/18 12:02 95 H 18 168/105 100 04/19/18 12:00 98.5 F 110 H 14 129/61 99 04/19/18 11:52 95 H 18 168/100 04/19/18 11:42 94 H 16 180/100 97 04/19/18 11:37 80 17 160/95 98 04/19/18 11:32 90 18 137/31 98 04/19/18 11:27 97.7 F 83 16 113/40 97 04/19/18 08:00 99.1 F H 20 149/62 100 Intake and Output 04/19/18 04/20/18 04/20/18 21:59 05:59 13:59 Intake Total 1120 / 2425 120 / 2425 Output Total 350 / 600 Balance 1120 / 1825 -230 / 1825 Intake: IV 1000 / 1085 Oral 120 / 240 120 / 240 Output: Urine Catheter Amount 350 / 600 Other: Meal Dinner Percent of Meal Consumed 4 bits Feeding Ability Total Assistance Urine Appearance Uretheral (Baker) Clear Cloudy Urine Color Uretheral (Baker) Bright Yellow Bright Yellow Urine Odor Uretheral (Baker) Normal Weight 127 lb 5 oz Intake & Output: Intake & Output 04/19/18 04/20/18 04/20/18 21:59 05:59 13:59 Intake Total 1120 / 2425 120 / 2425 Output Total 350 / 600 Balance 1120 / 1825 -230 / 1825 Weight 127 lb 5 oz Intake: IV 1000 / 1085 Oral 120 / 240 120 / 240 Output: Urine Catheter Amount 350 / 600 Other: Meal Dinner Percent of Meal Consumed 4 bits Feeding Ability Total Assistance Urine Appearance Uretheral (Baker) Clear Cloudy Urine Color Uretheral (Baker) Bright Yellow Bright Yellow Urine Odor Uretheral (Baker) Normal Incision: Yes clean and dry Incision clean and dry: Yes Dressing: Yes clean, Yes dry, Yes intact Weight bearing status: as tolerated Neurological exam IM: Yes alert, Yes motor sensory intact, Yes neurovascular intact Extremities exam IM: Yes calf tenderness (negative), Yes Indu's sign (negative bilaterally), Yes Foot pink and warm, Yes neurovascular intact - Labs CBC & BMP: 04/19/18 04:12 04/19/18 04:12 Labs: Orthopedic Labs 04/18/18 14:21 PT 13.5 INR 1.0 04/19/18 04/18/18 04:12 14:21 Hgb 8.4 L 9.8 L Hct 26.0 L 30.7 L Assessment and Plan (1) Fracture of right hip Patient may be WBAT with walker/PT. She will likely be discharged to a care facility for assistance and PT. Status: Acute
[2018-04-20] MEDS ORDERED: OMEPRAZOLE 20 MG CAPSULE PO SCH ×2 (07:30)
--- NOTE | 2018-04-20 07:59 | Operative Note ---
DATE OF OPERATION: 04/19/2018 PREOPERATIVE DIAGNOSIS: Right femoral transcervical neck fracture, significantly displaced. POSTOPERATIVE DIAGNOSIS: Right femoral transcervical neck fracture, significantly displaced. OPERATION PROPOSED: Right hip hemiarthroplasty. OPERATION PERFORMED: Right hip hemiarthroplasty. OPERATING SURGEON: Aram Martines M.D. BOOKING PRIZER: Althea Correa PA-C INDICATIONS: This is an elderly lady who has a significantly displaced femoral neck fracture. We elected to proceed with a hemiarthroplasty. OPERATION IN DETAIL: Informed consent was obtained. She was taken to the operating where she was provided with appropriate anesthetic and prophylactic antibiotics. She was carefully positioned. Her hip was prepped sterilely. A standard posterior approach to the hip was performed. I dissected through the short external rotators. The hip capsule was cut and T'd. I did tag the piriformis and released this. I cut and T'd the hip capsule. The femoral head was exposed. I then sequentially reamed and broached to a size 6. A pressfit DePuy stem was applied and I trialled head and neck components. I selected a standard neck with I believe a 46 head ball. This was reduced into place and was very stable. I had passed a cable low across the calcar prior to broaching as she did have some of the fracture that extended down low into the femoral neck and towards the calcar. Once I had the stem in place I additionally tightened the wire and crimped this. It was cut. I irrigated extensively and closed the hip capsule with an Ethibond. The IT band was closed with #1 Vicryl in interrupted fashion and a Stratafix suture. I approximated soft tissue over the suture line. I closed with a 2-0 inverted deep dermal and capri. The procedure was tolerated well. No complications. Estimated blood loss was 50 mL. GDD:valeriy Job ID: [id number] Doc ID: [id number] Lorne Martines MD
[2018-04-20] MEDS ORDERED: DILTIAZEM 240 MG CAP.XL.24H PO SCH ×2 (09:00)
[2018-04-20] MEDS ORDERED: ISOSORBIDE MONONITRATE 30 MG TAB.XL.24H PO SCH ×2 (09:00)
[2018-04-20] MEDS: DEXTROSE 5%-1/2NS W/20MEQ KCL 1,000 ML IV SCH (09:11)
[2018-04-20] MEDS: busPIRone 5 MG TABLET PO SCH (09:11)
[2018-04-20] MEDS: FORMOTEROL FUMARATE INH SCH (09:12)
[2018-04-20] MEDS: HEPARIN 5,000 UNIT/ML VIAL SQ SCH (09:12)
[2018-04-20] MEDS: BUDESONIDE INH SCH (09:12)
[2018-04-20] MEDS: ACETAMINOPHEN 500 MG TABLET PO SCH (09:12)
[2018-04-20] MEDS ORDERED: KETAMINE 100 MG/ML ML IV ONE (10:20)
[2018-04-20] MEDS ORDERED: PROPOFOL 200 MG/20 ML VIAL IV ONE (10:20)
[2018-04-20] MEDS ORDERED: ONDANSETRON 4 MG/2 ML VIAL IV ONE (10:20)
[2018-04-20] MEDS ORDERED: MIDAZOLAM 2 MG/2 ML VIAL IV ONE (10:20)
[2018-04-20] MEDS ORDERED: DEXAMETHASONE 10 MG/ML VIAL IV ONE (10:20)
[2018-04-20] MEDS ORDERED: LIDOCAINE HCL/PF 100 MG/5 ML SYRINGE IV ONE (10:20)
--- NOTE | 2018-04-20 10:25 | Discharge Summary ---
Medical - DS: Prov Patient information: Note initiated : 04/20/18 at 10:21 am Service Date, if different from initiated Date: [] Patient: Janelle Lees 87 y/o F admitted on 04/18/18 for Fall, hip pain. Chief Complaint: [] Date of admission: 04/18/18 17:50 Discharge date: 04/20/18 Primary care physician: Lily Gale Consults: 04/18/18 Consult to Physician [CONS] Stat Comment: Consulting Provider: Lorne Martines Reason For Exam: Physician to Consult Consult to Physician [CONS] Stat Comment: Consulting Provider: Colt Mcfarland Reason For Exam: Physician to Consult Discharging clinician: Colt Mcfarland Medical - DS: Meds - Discharge Medications Prescriptions: LORazepam [Ativan] 0.5 mg PO HSP PRN #10 tablet PRN Reason: Anxiety oxyCODONE HCL [Roxicodone] 5 mg PO Q4HP PRN #40 tablet PRN Reason: Pain traMADol [Ultram] 25 mg PO PRN PRN #30 tablet PRN Reason: Pain Active and Home Medications: Home Medications Atenolol [Tenormin] 50 mg PO BID 09/11/15 [History Confirmed 04/18/18 Last Taken 03/07/18] Budesonide/Formoterol Fumarate [Symbicort 80-4.5 Mcg Inhaler] 10.2 gm IH BID 0 09/11/15 [History Confirmed 04/18/18 Last Taken 03/07/18] Diltiazem HCl [Matzim LA] 240 mg PO DAILY 09/11/15 [History Confirmed 04/18/18 Last Taken 03/07/18] Donepezil HCl [Donepezil HCl Odt] 5 mg PO DAILY 09/11/15 [History Confirmed 04/18/18 Last Taken 03/07/18] Isosorbide Mononitrate [Isosorbide Mononitrate ER] 30 mg PO DAILY 09/11/15 [History Confirmed 04/18/18 Last Taken 03/07/18] Meclizine [Antivert] 25 mg PO TIDP PRN 09/11/15 [History Confirmed 04/18/18 Last Taken 03/07/18] Simvastatin [Zocor] 10 mg PO HS 09/11/15 [History Confirmed 04/18/18 Last Taken 03/07/18] Vitamin D3 1,000 unit PO DAILY 09/11/15 [History Confirmed 04/18/18 Last Taken 03/07/18] Lisinopril [Zestril] 10 mg PO DAILY #30 tablet 10/10/15 [Rx Confirmed 04/18/18 Last Taken 03/07/18] Acetaminophen [Non-Aspirin Extra Strength] 500 mg PO TID 04/18/18 [History Confirmed 04/18/18 Last Taken Unknown] Bisacodyl [Dulcolax] 10 mg CO PRN PRN 04/18/18 [History Confirmed 04/18/18 Last Taken Unknown] Bisacodyl [Gentle Laxative] 10 mg PO DAILYP PRN 04/18/18 [History Confirmed 04/18/18 Last Taken Unknown] LORazepam [Ativan] 0.5 mg PO HSP PRN 04/18/18 [History Confirmed 04/18/18 Last Taken Unknown] LORazepam [Ativan] 0.5 mg PO HSP PRN 04/18/18 [History Confirmed 04/18/18 Last Taken Unknown] Losartan [Cozaar] 50 mg PO DAILY 04/18/18 [History Confirmed 04/18/18 Last Taken Unknown] Magnesium Hydroxide [Milk of Magnesia] 30 ml PO PRN PRN 04/18/18 [History Confirmed 04/18/18 Last Taken Unknown] Metoprolol Tartrate [Lopressor] 25 mg PO BID 04/18/18 [History Confirmed 04/18/18 Last Taken Unknown] Na Phos,M-B/Na Phos,Di-Ba [Fleet Enema Extra] 118 ml RC PRN PRN 04/18/18 [History Confirmed 04/18/18 Last Taken Unknown] Omeprazole [PriLOSEC] 40 mg PO DAILY 04/18/18 [History Confirmed 04/18/18 Last Taken Unknown] Potassium Chloride [Klor-Con 10] 10 meq PO DAILY 04/18/18 [History Confirmed 04/18/18 Last Taken Unknown] Torsemide [Demadex] 20 mg PO DAILY 04/18/18 [History Confirmed 04/18/18 Last Taken Unknown] Tuberculin,Purif.prot.deriv. [Tubersol] 5 tub ID ONCE 04/18/18 [History Confirmed 04/18/18 Last Taken Unknown] busPIRone [Buspar] 5 mg PO BID 04/18/18 [History Confirmed 04/18/18 Last Taken Unknown] busPIRone [Buspar] 10 mg PO TID 04/18/18 [History Confirmed 04/18/18 Last Taken Unknown] traMADol [Ultram] 25 mg PO PRN PRN 04/18/18 [History Confirmed 04/18/18 Last Taken Unknown] Medical - DS: Hosp Hospital course: MMs. Lees is a 87 year old F who [facility], patient has advanced dementia was found down complaining of hip pain . The patient is a poor historian and the fall was unwitnessed. The patient is comfort care patient at the [facility] at this time. The patient was brought to the hospital for further evaluation. Most of my history is from chart review, at the time of my evaluation patient had received pain medications and was drowsy unable to provide any meaningful history. Based on chart review patient is demented and is not able to speak anyways. According to the physician in the emergency room, the patient had a fall, pain on the right side of the hip. She had x-rays of the hip done which shows a right hip fracture. The patient family wanted this fracture to be fixed. Orthopedics was consulted who evaluated the patient and plans to take the patient for surgery tomorrow at 10 AM. The patient has advanced dementia and is comfort care patient the patient was admitted to this hospital 1 month ago for the diagnosis of acute pulmonary embolism. She was discharged on oral Eliquis, subsequently she presented to the emergency room with GI bleed. On reviewing the GI notes from [facility] at that time no endoscopy was performed, family elected to stop the anticoagulants and treatment, they refused an IVC filter. The plan to keep the patient comfortable. At present patient is not on anticoagulation In the emergency room patient is afebrile, temperature 97.1, heart rate 86, respirations 20, blood pressure 117/54, saturating 100% on 2 L of oxygen. Chest x-ray shows right basilar atelectasis otherwise negative Labs show a WBC count of 9.4, hemoglobin 9.8 platelets 398, INR 1.0. Sodium 143 potassium 3.9 creatinine is 1.9 which is new baseline is normal bicarbonate 32 glucose 147 Acute right hip fracture: Status post surgery, stable for discharge, Patient has high risk of periop dvt /PE given recent PE, however also has had GI bleed on anticoagulation and comfort care is the goal, hence no anticoagulation is being prescribed. Pulmonary embolus: Diagnosed on mar 24, stable at this time, not on ant icoagulation due GI bleed- No EGD done, pt is off anticoagulation at the request of family, comfort care. The rest of the stay in the hospital was unremarkable, pt will be discharged back to snf Discharge diagnosis: Hip fracture - Time Spent with Patient Total time spent providing and/or coordinating discharge services: Greater than 30 minutes Medical - DS: Exam - Constitutional Vitals: Vital Signs Temp Pulse Pulse Resp BP BP Pulse Ox 04/20/18 06:58 110 H 18 98 04/20/18 06:28 96.6 F L 116 H 22 154/72 99 04/20/18 03:33 97.5 F 116 H 18 154/68 93 04/19/18 23:40 98.0 F 107 H 14 160/60 97 04/19/18 19:40 80 16 04/19/18 19:23 98.6 F 108 H 16 116/69 92 04/19/18 19:01 105 H 16 99 04/19/18 18:58 112 H 16 04/19/18 16:00 98.5 F 80 20 129/61 97 04/19/18 15:20 97.8 F 24 H 99/59 92 04/19/18 14:57 129/61 99 04/19/18 13:50 111/55 100 04/19/18 13:27 98 H 14 98 04/19/18 13:20 121/64 100 04/19/18 13:18 102 H 14 04/19/18 13:05 117/53 98 04/19/18 12:50 120/51 98 04/19/18 12:35 139/62 94 04/19/18 12:12 98.5 F 95 H 14 135/62 100 04/19/18 12:02 95 H 18 168/105 100 04/19/18 12:00 98.5 F 110 H 14 129/61 99 04/19/18 11:52 95 H 18 168/100 04/19/18 11:42 94 H 16 180/100 97 04/19/18 11:37 80 17 160/95 98 04/19/18 11:32 90 18 137/31 98 04/19/18 11:27 97.7 F 83 16 113/40 97 Intake and Output 04/19/18 04/20/18 04/20/18 21:59 05:59 13:59 Intake Total 1120 / 2425 120 / 2425 Output Total 350 / 600 Balance 1120 / 1825 -230 / 1825 Intake: IV 1000 / 1085 Oral 120 / 240 120 / 240 Output: Urine Catheter Amount 350 / 600 Other: Meal Dinner Percent of Meal Consumed 4 bits Feeding Ability Total Assistance Urine Appearance Uretheral (Baker) Clear Cloudy Urine Color Uretheral (Baker) Bright Yellow Bright Yellow Urine Odor Uretheral (Baker) Normal Weight 127 lb 5 oz Additional comments: Constitutional; Afebrile, cooperative, alert, not in distress. ENT- hard of hearing. Respiratory system: Air Entry equal on both sides, No crackles or wheezing, no rhonchi. CVS- Rate rhythm regular, S1,S2 heard, no gallop, no rub. Abdomen- Soft nontender abdomen, no organomegaly, no tenderness, no guarding or rigidity, HAND FRETTED INSTRUMENT MAKER- AOOx1, moving all extremities, no gross focal deficit noted. Medical - DS: A/P - Patient/Caregiver Discharge Instructions Activity: as per physical therapy, increase activity as tolerated Diet: Dysphagia Mech Alter Additional Instructions: Wound care as per Ortho, Follow up as per ortho Rehab as tolerated Follow up with PCP in 1-2 weeks - Follow up Plan Follow up with: Lily Gale MD [Primary Care Provider] - Disposition: [facility] Prognosis: Undetermined Rehab Potential: Undetermined I certify that the patient requires SNF services: Yes Overall status at discharge: patient is progressing back to baseline Medical - DS: Qual - VTE Deep Vein Thrombosis/Pulmonary Embolism Present on Admission: No
== END 2018-04-20 13:45 | DRG 470 ==
LOC: ED 13:35 → MEDSUR 17:50
PROVIDERS: ADMIT Internal Medicine; ATTEND Internal Medicine
PROC: HEMIHIP (2018-04-19 10:15)